=== PATIENT | male | born 1945 | race Caucasian/White ===

== ENCOUNTER → 2017-06-20 | Outpatient (CLI) | payer MEDICARE ==
[~2017-06-20] MED LIST: ALLOPURINOL300 MG PO; ASPIRIN325 M2 PO; CARAFATE1 GM/10 ML PO; DEXILANT60 MG PO; FLOMAX0.4 MG PO; FUROSEMIDE40 MG PO; GLIMEPIRIDE1 MG PO; HYDRALAZINE HCL25 MG PO; METFORMIN HCL500 MG PO; METOLAZONE5 M1 PO; MS CONTIN30 MG PO; OXYCONTIN40 M1 PO; POTASSIUM CHLO10 ME1 PO; PRAVASTATIN SOD10 MG PO; TOPROL XL50 MG PO; VASOTEC10 M1 PO; WARFARIN SODIUM10 MG PO; XARELTO20 MG; Z PHENOBARBITAL PO; Z.0.ACIPHEX20 MG PO; Z.0.AMARYL2 MG PO; Z.0.CRESTOR20 MG; Z.0.CYCLOBENZAPRINE1 PO; Z.0.DILANTIN100 MG PO; Z.0.FINASTERIDE5 MG PO; Z.0.GLUCOPHAGE1000 M PO; Z.0.JANUVIA100 MG PO; Z.0.LASIX40 MG PO; Z.0.LEXAPRO10 MG PO; Z.0.NEURONTIN300 MG PO; Z.0.PLAVIX75 MG PO; Z.0.VASOTEC10 MG PO; Z.0.VITAMIN D50000 U PO; Z.1.POTASSIUM CHLO10 PO; ZANTAC300 M1 PO; [UNRECOGNIZED DRUG - OTHER] PO
[2017-06-20 15:30] LABS: INR 2.05; PROTHROMBIN TIME 24.2 seconds (11.9-14.5)
[2017-06-20 15:33] LABS: BLOOD UREA NITROGEN 21 mg/dL (7-26); BUN/CREATININE RATIO 23 (6-25); EST GLOMERULAR FILTRATION RATE > 60 ML/MIN (60-)
--- NOTE | 2017-06-20 16:30 | Diagnostic Imaging Report ---
PROCEDURE: A single AP view of the chest. COMPARISON: None. INDICATIONS: picc line placement FINDINGS: Lines/tubes: New PICC line with tip in mid SVC. Lungs: The lungs are well inflated and clear. There is no evidence of pneumonia or pulmonary edema. Pleura: There is no pleural effusion or pneumothorax. Heart and mediastinum: The heart and the mediastinum are unremarkable. Bones: No acute bony abnormality. IMPRESSION: New left PICC line with tip at mid SVC. Dictated by: Lazarus Landrum M.D. on 06/20/2017 at 16:38 Electronically approved by: Lazarus Landrum M.D. on 06/20/2017 at 16:38
== END ==
LOC: DX 13:16
PROVIDERS: ATTEND Internal Medicine Infectious Disease
DX: L03.818 Cellulitis of other sites (principal)
CPT/HCPCS: 36415; 36569; 71010; 82565; 84520; 85610

== ENCOUNTER 2019-02-07 10:58 | Inpatient (IN) | payer MEDICARE ==
[~2019-02-07] VITALS: Ht 188 cm; Wt 144.2 kg
[2019-02-07] VITALS (30 sets, daily range): BP systolic 88–146; BP diastolic 53–100
--- OUTSIDE RECORDS SUMMARY | 2019-02-07 11:01 | XMS REPORT ---
Author Author [facility] Address Unknown Phone Unavailable Care Team Providers Care Behavioral Health Case Manager Name Role Phone ALESHIA GOMEZ Unavailable Unavailable Problems This patient has no known problems. Allergies, Adverse Reactions, Alerts This patient has no known allergies or adverse reactions. Medications This patient has no known medications. Results Test Description Test Time Test Comments Text Results Atomic Results Result Comments CHEST XRAY LINE PLACEMENT [place] [id number] Patient Name: CARMEN POLLARD MR #: [id number] : 1945 Age/Sex: 72/M Req #: [id number] Adm Physician: Ordered by: ALESHIA GOMEZ MD Report #: [id number] Location: DX Room/Bed: Procedure: [id number] DX/CHEST XRAY LINE PLACEMENT Exam Date: Exam Time: REPORT STATUS: Signed PROCEDURE: A single AP view of the chest. COMPARISON: None. INDICATIONS: picc line placement FINDINGS: Lines/tubes: New PICC line with tip in mid SVC. Lungs: The lungs are well inflated and clear. There is no evidence of pneumonia or pulmonary edema. Pleura: There is no pleural effusion or pneumothorax. Heart and mediastinum: The heart and the mediastinum are unremarkable. Bones: No acute bony abnormality. IMPRESSION: New left PICC line with tip at mid SVC. Dictated by: Soni Landrum M.D. on 06/20/2017 at 16:38 Electronically approved by: Soni Landrum M.D. on 06/20/2017 at 16:38 Dictated By: SONI LANDRUM MD [id number] Transcribed By: TATA on 06/20/17 1638 COPY TO: ALESHIA GOMEZ MD
--- NOTE | 2019-02-07 11:17 | NUR ---
20 MG OF ETOMIDATE GIVEN VIA 18G LEFT F/A.
--- NOTE | 2019-02-07 11:19 | NUR ---
INTUBATED AT THIS TIME WITH 8CM ET TUBE/25 AT THE LIP
[2019-02-07] MEDS ORDERED: FENTANYL CITRATE INJ 2,000 MCG in SODIUM CHLORIDE 0.9% 250ML 210 ML IV PRN (11:30)
[2019-02-07] MEDS ORDERED: SODIUM CHLORIDE 0.9% 1000ML 1,000 ML ONE ×2 (11:33→12:08)
[2019-02-07] MEDS: MIDAZOLAM HCL 25 MG in SODIUM CHLORIDE 0.9% 50ML 45 ML IV PRN ×3 (11:45→22:50)
--- NOTE | 2019-02-07 11:55 | NUR ---
16FR PORTILLO PLACED
--- NOTE | 2019-02-07 12:08 | Diagnostic Imaging Report ---
Chest, central frontal view Clinical indication: Altered mental status Comparison: No comparisons available for review. Findings/impression: The tip of the endotracheal tube is at the level of the clavicles approximately 5.6 cm above the [place]. The heart is mildly enlarged. There is diffuse interstitial prominence compatible with edema. More focal opacity is identified in the right upper lung zone for which pneumonitis should clinically excluded. There is a trace right pleural effusion. There is no pneumothorax. Right shoulder arthroplasty hardware is partially visualized. Signed by: Nate Obregon MD on 02/07/2019 12:05 PM
--- NOTE | 2019-02-07 12:23 | NUR ---
14FR Adam PLACED AND CONNCECTED TO L.I.SJosé
[2019-02-07 12:37] LABS: ABG HCO3 42 mmol/L (23-28); ABG PCO2 57 mmHg (41-51); ABG PH 7.47 (7.31-7.41); ABG PO2 78 mmHg (80-105)
--- NOTE | 2019-02-07 12:41 | NUR ---
X-RAY IN RM; POST O.G.T. PLACEMENT
[2019-02-07 12:44] LABS: BASOPHILS % 0.2 % (0.0-1.0); HEMATOCRIT 42.6 % (38.2-49.6); HEMOGLOBIN 11.9 g/dL (14.0-18.0); LYMPHOCYTES # (AUTO) 0.6 (1.0-3.2); LYMPHOCYTES % 6.1 % (18.0-39.1); MEAN CORPUSCULAR HEMOGLOBIN 26.6 pg (28-32); MEAN CORPUSCULAR HGB CONC 27.9 g/dL (31-35); MEAN CORPUSCULAR VOLUME 95.3 fL (81-99); MONOCYTES # (AUTO) 0.4 (0.2-0.8); MONOCYTES % 4.3 % (4.4-11.3); NEUTROPHILS # (AUTO) 8.1 (2.1-6.9); NEUTROPHILS % 88.9 % (38.7-80.0); PLATELET COUNT 160 x10e3/uL (140-360); RED BLOOD COUNT 4.47 x10e6/uL (4.3-5.7); RED CELL DISTRIBUTION WIDTH 15.5 % (11.7-14.4)
[2019-02-07 12:50] LABS: PROTHROMBIN TIME 54.1 seconds (11.9-14.5)
[2019-02-07 12:51] LABS: PARTIAL THROMBOPLASTIN TIME 69.6 seconds (23.8-35.5)
[2019-02-07] MEDS ORDERED: SUCCINYLCHOLINE CHLORIDE 20 MG/ML 10ML VIAL ONE (12:56)
[2019-02-07] MEDS ORDERED: ETOMIDATE 2 MG/ML 10 ML INJ IV ONE (12:56)
[2019-02-07] MEDS ORDERED: VANCOMYCIN 1GM/NS 250 ML 250 ML IV STA (13:00)
[2019-02-07] MEDS ORDERED: CEFEPIME HCL 1 GM VIAL IV SCH (13:00)
[2019-02-07 13:01] LABS: ALANINE AMINOTRANSFERASE 19 IU/L (0-55); ALBUMIN 3.8 g/dL (3.5-5.0); ALBUMIN/GLOBULIN RATIO 0.8 (0.8-2.0); ALKALINE PHOSPHATASE 164 IU/L (40-150); ANION GAP 14.3 mmol/L (8-16); BLOOD UREA NITROGEN 29 mg/dL (7-26); BUN/CREATININE RATIO 35 (6-25); CHLORIDE 89 mmol/L (98-107); CREATINE KINASE 30 IU/L (30-200); CREATININE, SERUM 0.84 mg/dL (0.72-1.25); EST GLOMERULAR FILTRATION RATE > 60 ML/MIN (60-); GLUCOSE 159 mg/dL (74-118); INR 5.96; POTASSIUM 4.3 mmol/L (3.5-5.1); SODIUM 144 mmol/L (136-145)
[2019-02-07 13:03] LABS: CARBON DIOXIDE 45 mmol/L (22-29)
--- NOTE | 2019-02-07 13:08 | Diagnostic Imaging Report ---
Portable chest, single view Clinical indications: Status post intubation Comparison: Earlier the same day at 11:35 AM Impression: The tip of the endotracheal tube is 5.5 cm above the [place]. There is been no other significant interval changes given the differences in imaging technique. There is redemonstration of diffuse interstitial edema. There is no pneumothorax. Note that the lung bases are not included on this examination. Signed by: Nate Obregon MD on 02/07/2019 1:05 PM
[2019-02-07 13:21] LABS: BILIRUBIN,URINE SMALL (NEGATIVE); CLARITY,URINE SL CLOUDY (CLEAR); COLOR,URINE YELLOW (YELLOW); KETONES,URINE NEGATIVE (NEGATIVE); LEUKOCYTE ESTERASE ,URINE NEGATIVE (NEGATIVE); NITRITE,URINE NEGATIVE (NEGATIVE); PROTEIN,URINE DIPSTICK 2+ (NEGATIVE); URINE UROBILINOGEN 0.2 mg/dL (0.2 - 1)
--- NOTE | 2019-02-07 13:25 | NUR ---
DR. CARROLL SPOKE WITH FAMILY
[2019-02-07 13:34] LABS: BACTERIA,URINE FEW /HPF; EPITHELIAL CELLS,URINE FEW /LPF
--- NOTE | 2019-02-07 14:15 | Diagnostic Imaging Report ---
History: Weakness, AMS Comparison studies: None Technique: Axial images were obtained from the skull base to the vertex. Coronal and sagittal reconstructions obtained from the axial data. Dose modulation, iterative reconstruction, and/or weight based adjustment of the mA/kV was utilized to reduce the radiation dose to as low as reasonably achievable. Findings: Scalp/skull: Left frontoparietal craniectomy changes. No fractures, blastic or lytic lesions. Extra-axial spaces: No masses. No fluid collections. Brain sulci: Appropriate for age. Ventricles: Normal in size and configuration. No hydrocephalus. Parenchyma: Surgical cavity underlying the craniotomy site at the left superior frontal gyrus posterior aspect with surrounding encephalomalacia. No other abnormal densities. No masses, hemorrhage, acute or chronic cortical vascular insults. Sellar/suprasellar region: No abnormalities Craniocervical junction: Patent foramen magnum. No Chiari one malformation. Atherosclerotic calcifications of the carotid siphons. Mild mucosal thickening of ethmoid sinuses. Partially visualized oral tubing. IMPRESSION: No acute abnormalities . Left frontoparietal craniectomy changes with surgical cavity at the left superior frontal gyrus. Signed by: DR Raul Aguirre M.D. on 02/07/2019 2:12 PM
[2019-02-07] MEDS ORDERED: LEVOTHYROXINE50 MCG PO (14:38)
[2019-02-07] MEDS ORDERED: LORAZEPAM0.5 MG PO (14:38)
--- NOTE | 2019-02-07 14:51 | NUR ---
LEFT MESSAGE WITH OFFICE REGARDING NEW CONSULT
[2019-02-07] MEDS ORDERED: SODIUM CHLORIDE 0.9% 100 ML ONE (15:07)
[2019-02-07] MEDS: ASPIRIN 81 MG CHEW TAB PO ONE ×2 (15:20→16:18)
[2019-02-07] MEDS: CEFEPIME 1GM/NS 0.9% 50 ML 50 ML IV SCH ×2 (15:20→22:00)
[2019-02-07] MEDS ORDERED: PANTOPRAZOLE 40 MG 10ML VIAL IV STA (16:51)
[2019-02-07] MEDS ORDERED: TAMSULOSIN HCL 0.4 MG CAP PO SCH (17:00)
[2019-02-07] MEDS ORDERED: FUROSEMIDE INJ 10 MG/ML 2 ML VIAL IV SCH (17:00)
[2019-02-07] MEDS ORDERED: ACETAZOLAMIDE SODIUM 500 MG/VIAL IV ONE (17:15)
[2019-02-07] MEDS ORDERED: PHYTONADIONE 10 MG/ML AMP SC ONE (17:15)
[2019-02-07] MEDS ORDERED: FUROSEMIDE INJ 10 MG/ML 4 ML VIAL ONE (17:18)
[2019-02-07] MEDS: FUROSEMIDE INJ 10 MG/ML 4 ML VIAL IV SCH (17:22)
[2019-02-07 17:38] LABS: ABG HCO3 43 mmol/L (23-28); ABG PCO2 46 mmHg (41-51); ABG PH 7.58 (7.31-7.41); ABG PO2 40 mmHg (80-105)
[2019-02-07 17:53] LABS: FREE THYROXINE INDEX 2.6425 (1.4-3.8); THYROID STIMULATING HORMONE 1.839 uIU/mL (0.350-4.940)
[2019-02-07] MEDS ORDERED: GABAPENTIN 300 MG CAP PO SCH (18:00)
[2019-02-07] MEDS: FINASTERIDE 5 MG TAB PO SCH (18:00)
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
[2019-02-07 18:42] LABS: CREATINE KINASE MB 4.6 ng/mL (0-5.0)
[2019-02-07 18:50] LABS: ABG PCO2 42 mmHg (41-51); ABG PH 7.59 (7.31-7.41); ABG PO2 53 mmHg (80-105)
[2019-02-07 18:51] LABS: ABG HCO3 40 mmol/L (23-28)
--- NOTE | 2019-02-07 19:18 | NUR ---
Read ABG results to Dr. Dong at 1915. Recheck ABG in AM. No other orders or vent settings changes received.
--- NOTE | 2019-02-07 20:28 | Consultation ---
DATE OF CONSULTATION: 02/07/2019 Pulmonary Consultation Patient of Dr. Obregon. HISTORY OF PRESENT ILLNESS: Unfortunate 74-year-old gentleman seen many years ago, diagnosed with sleep apnea. He has had progressive episodes of respiratory failure and pulmonary edema today and was intubated in the emergency room. He has been bedbound for the last 2 days. He is currently intubated. At best, he is wheelchair-bound. He has a history of obstructive sleep apnea and hypoventilation syndrome. He has had coronary artery disease with a stent placed in 2008. He has chronic atrial fibrillation, chronically anemic, diabetic, history of seizure disorder, and BPH. He had a traumatic brain injury and skull fracture requiring decompression and craniotomy, history of chronic inflammatory demyelinating polyneuropathy. He is on multiple medications. He also has history of knee replacement, shoulder replacement, radiofrequency ablation, and prostate laser surgery. FAMILY HISTORY: Strongly positive for cancer of the prostate. He has appendectomy in the past, herniorrhaphy in the past, elbow surgery, joint replacement, shoulder and knee. MEDICATIONS: Include warfarin, Flomax, clorazepate, OxyContin, finasteride, Bumex, allopurinol, metoprolol, Pravachol, Neurontin, and amiodarone. PHYSICAL EXAMINATION: GENERAL: Burly obese white male, intubated and sedated. VITAL SIGNS: Blood pressure 132/112 now, temperature 96, respirations 22, pulse 100 and irregular. LUNGS: Bilateral rales. HEART: Irregular rhythm. ABDOMEN: Obese. EXTREMITIES: No edema. Stasis changes. IMPRESSION: 1. Acute pulmonary edema. 2. Acute respiratory distress syndrome. PLAN: Plan is for cautious diuresis, ventilator support. Continue home medications as tolerated. He is currently on antibiotics. Possibility of aspiration. Defer prophylactic anticoagulation, as the patient is over anticoagulated on Coumadin at this time. Consider vitamin K, ProTime rises further. INR is currently 6. We will increase PEEP and FiO2 as tolerated. Thank you for this kind referral. MD ALEXANDRE Reddy/MODL /[id number]
[2019-02-07] MEDS ORDERED: ENOXAPARIN INJ 80 MG/0.8 ML SYR SC SCH (21:00)
[2019-02-07] MEDS ORDERED: METOPROLOL SUCCINATE 50 MG TAB XL PO SCH (21:00)
[2019-02-07] MEDS: METOPROLOL TARTRATE 50 MG TAB PO SCH (21:00)
[2019-02-07] MEDS: GABAPENTIN 300 MG CAP PO SCH (22:00)
[2019-02-07] MEDS: FENTANYL CITRATE INJ 2,000 MCG in SODIUM CHLORIDE 0.9% 250ML 210 ML IV PRN (22:50)
--- NOTE | 2019-02-07 23:23 | Diagnostic Imaging Report ---
EXAM: Abdomen Radiograph 1 View INDICATION: Enteric tube placement COMPARISON: Chest radiograph 02/07/2019 FINDINGS: No lines or tubes. Normal volume of stool in the colon. No dilated loops of small bowel. No abnormal abdominal calcifications.. No abnormal soft tissue masses. No pneumoperitoneum. Degenerative changes in the lumbar spine and pelvis. The included lower heart border is mildly enlarged. Suggestion of a left retrocardiac opacity with obscuration of the left hemidiaphragm. IMPRESSION: An enteric tube is not identified. Mild cardiomegaly. Left retrocardiac opacity may represent edema, pneumonia, and/or atelectasis. Signed by: Benjamin Goldberg DO on 02/07/2019 11:20 PM
[2019-02-08] VITALS (25 sets, daily range): BP systolic 82–150; BP diastolic 41–130
[2019-02-08] MEDS ORDERED: AMIODARONE HCL 150MG 100 ML IV STA (00:24)
[2019-02-08 01:00] LABS: CREATINE KINASE MB 2.6 ng/mL (0-5.0)
[2019-02-08] MEDS: FENTANYL CITRATE INJ 2,000 MCG in SODIUM CHLORIDE 0.9% 250ML 210 ML IV PRN (01:08)
[2019-02-08] MEDS: MIDAZOLAM HCL 25 MG in SODIUM CHLORIDE 0.9% 50ML 45 ML IV PRN (01:35)
[2019-02-08] MEDS: VANCOMYCIN 1GM/NS 250 ML 250 ML IV SCH ×2 (02:55→14:10)
--- NOTE | 2019-02-08 05:54 | Diagnostic Imaging Report ---
EXAMINATION: CHEST SINGLE (PORTABLE) INDICATION: Right upper lobe pneumonia, CHF COMPARISON: Chest radiograph 02/07/2019 FINDINGS: AP view TUBES and LINES: ET tube tip terminates in the mid intrathoracic trachea. Enteric tube courses into abdomen with tip at a field of view.. LUNGS: Slight improvement in airspace opacities in bilateral mid to lower lungs. Prominent central pulmonary vasculature. PLEURA: Suspect small layering bilateral pleural effusions. No pneumothorax. HEART AND MEDIASTINUM: Cardiac size is mildly enlarged. BONES AND SOFT TISSUES: No acute osseous lesion. Soft tissues are unremarkable. Partially visualized left shoulder hardware intact. UPPER ABDOMEN: No free air under the diaphragm. IMPRESSION: Slight improvement in lung aeration compared to day prior. Persistent hazy opacification in the bilateral mid to lower lungs, favor edema rather than pneumonia. Suspect small layering bilateral pleural effusions. Signed by: Benjamin Goldberg DO on 02/08/2019 5:51 AM
[2019-02-08 06:00] LABS: BASOPHILS % 0.3 % (0.0-1.0); EOSINOPHILS % 0.1 % (0.0-6.0); HEMATOCRIT 30.2 % (38.2-49.6); HEMOGLOBIN 9.2 g/dL (14.0-18.0); LYMPHOCYTES # (AUTO) 1.2 (1.0-3.2); LYMPHOCYTES % 17.7 % (18.0-39.1); MEAN CORPUSCULAR HEMOGLOBIN 27.4 pg (28-32); MEAN CORPUSCULAR HGB CONC 30.5 g/dL (31-35); MEAN CORPUSCULAR VOLUME 89.9 fL (81-99); MONOCYTES # (AUTO) 0.6 (0.2-0.8); MONOCYTES % 8.5 % (4.4-11.3); PLATELET COUNT 114 x10e3/uL (140-360); RED BLOOD COUNT 3.36 x10e6/uL (4.3-5.7); RED CELL DISTRIBUTION WIDTH 15.5 % (11.7-14.4)
[2019-02-08] MEDS: FUROSEMIDE INJ 10 MG/ML 4 ML VIAL IV SCH ×2 (06:00→17:45)
[2019-02-08 06:22] LABS: ALANINE AMINOTRANSFERASE 15 IU/L (0-55); ALBUMIN 2.6 g/dL (3.5-5.0); ALBUMIN/GLOBULIN RATIO 0.9 (0.8-2.0); ALKALINE PHOSPHATASE 117 IU/L (40-150); ANION GAP 15.8 mmol/L (8-16); BLOOD UREA NITROGEN 32 mg/dL (7-26); BUN/CREATININE RATIO 34 (6-25); CALCIUM 8.5 mg/dL (8.4-10.2); CARBON DIOXIDE 36 mmol/L (22-29); CHLORIDE 99 mmol/L (98-107); CREATININE, SERUM 0.94 mg/dL (0.72-1.25); EST GLOMERULAR FILTRATION RATE > 60 ML/MIN (60-); GLUCOSE 89 mg/dL (74-118); POTASSIUM 3.8 mmol/L (3.5-5.1); SODIUM 147 mmol/L (136-145)
[2019-02-08 06:25] LABS: MAGNESIUM < 0.6 MG/DL (1.3-2.1)
[2019-02-08 06:31] LABS: PHOSPHORUS 0.9 MG/DL (2.3-4.7)
[2019-02-08] MEDS: GABAPENTIN 300 MG CAP PO SCH ×3 (06:39→21:28)
[2019-02-08] MEDS: LEVOTHYROXINE SODIUM 50 MCG TAB PO SCH (06:39)
--- NOTE | 2019-02-08 06:39 | NUR ---
Left voicemail with Dr. Valdivia regarding new consult and hypotension. Awaiting return call. Attempted to call Dr. Obregon's answering service x3. Received busy signal 3 calls. Left message with answering service at 0640 regarding critical lab value. Awaiting return call.
[2019-02-08] MEDS ORDERED: MAGNESIUM SULFATE 2GM/50ML 50 ML IV ONE (08:15)
[2019-02-08] MEDS: METOPROLOL TARTRATE 50 MG TAB PO SCH ×3 (08:50→20:48)
[2019-02-08] MEDS: PANTOPRAZOLE 40 MG 10ML VIAL IV SCH (08:54)
[2019-02-08] MEDS: ALLOPURINOL 300 MG TAB PO SCH (09:22)
[2019-02-08] MEDS: FINASTERIDE 5 MG TAB PO SCH ×2 (09:22→16:13)
[2019-02-08] MEDS: CEFEPIME 1GM/NS 0.9% 50 ML 50 ML IV SCH ×2 (09:23→20:48)
[2019-02-08 09:57] LABS: ABG HCO3 40 mmol/L (23-28); ABG PCO2 41 mmHg (41-51); ABG PO2 202 mmHg (80-105)
[2019-02-08] MEDS ORDERED: LORAZEPAM 1 MG TAB NG PRN (10:00)
[2019-02-08] MEDS ORDERED: SODIUM CHLORIDE 0.9% 250ML 250 ML IV NR (10:00)
[2019-02-08] MEDS ORDERED: LORAZEPAM INJ 2 MG/ML VIAL IV PRN (10:00)
[2019-02-08] MEDS ORDERED: SODIUM CHLORIDE 0.9% 250ML 250 ML ONE (10:14)
[2019-02-08] MEDS ORDERED: POTASSIUM PHOSPHATE 20 MM in SODIUM CHLORIDE 0.9% 250ML 250 ML IV SCH (10:15)
[2019-02-08] MEDS ORDERED: POTASSIUM PHOSPHATE IV ONE (10:30)
[2019-02-08] MEDS ORDERED: SODIUM CHLORIDE IV ONE (10:30)
[2019-02-08 10:32] LABS: INR 2.73; PROTHROMBIN TIME 29.7 seconds (11.9-14.5)
[2019-02-08] MEDS ORDERED: POTASSIUM PHOSPHATE 20 MM in SODIUM CHLORIDE 0.9% 250ML 250 ML IV ONE (10:45)
--- NOTE | 2019-02-08 11:41 | NUR ---
SPOKE WITH DR. DYSNO REGARDING NEW CONSULT
--- NOTE | 2019-02-08 12:37 | NUR ---
Nutrition Intervention Note RD Recommendation(s) for Physician: Increase Glucerna 1.5 to a goal of 65ml/hr via OGT(1184ml of free water,2340 kcals and 128.7g of protein) 250ml water flush every four hours Plan of Care: RD following, monitoring for tolerance and adequacy Nutrition reason for involvement: New EN RD Assessment Initial encounter with patient. Pt with a poor prognosis and palliative care has been discussed with family. Pt is orally intubated and sedated. was present at the bedside. New EN order noted and not infusing at time of visit. Glucerna 1.5 at 40ml/hr would provide 728.64ml of free H2O not including water flushes, 1440 kcals, and 79.2g of protein. Pt is DNR. Diet Hx: Pt has no known food allergies. No nausea, vomiting or diarrhea. Some voluntary wt loss DIALYSIS REGISTERED NURSE Principal Problems/Diagnoses: Acute respiratory failure, pneumonia PMH: Gout, CAD, CKD stage 1, T2DM, atrial fibrillation, hypothyroid, systolic heart failure, seizure DO overweight/obesity, respiratory failure, TBI GI: obese, no Nausea, vomiting or constipation Skin: Intact Skin Labs: (02/08/2019) Biochemical data reviewed. Na of 147 Meds: (02/08/19) MAR reviewed Ht: 74in. Wt:347lbs BMI:44.6kg/M2 IBW:190lbs Malnutrition Evaluation (02/08/19) The patient does not meet criteria for a specified degree of malnutrition at this time. Will re-evaluate at follow-up as appropriate. Nutrition Prescription (Diet Order): NPO Estimated Nutritional Needs: 2208-2523calories/day (14-16 kcal/kg/BW) 157g protein/day ( 1g pro/kg/ BW) Diet Adequacy: Not meeting calorie needs, Not meeting protein needs Diet Education Needs Assessment: Diet education not indicated Nutrition Care Level: Low, Moderate, High Nutrition Diagnosis: Swalloing difficulty related to acute illness as evidenced by need to remain NPO. Goal: Patient will meet 75-100% of estimated needs by follow up Progress: (Progressing) Interventions: Commercial food, Composition, Rate, Route, IVF, Prescription medications Monitoring/Evaluation: Total energy intake, Total protein intake, Formula/Solution, IVF, Prescription medication, Weight change Signed: Aram Fernandes RD, LD, CNSC Addendum: 02/08/19 at 1332 by Aram Fernandes DIET Nutrition Care Level: Moderate
--- NOTE | 2019-02-08 14:00 | NUR ---
OG tube draining dark bilious output. Location of tube assessed by auscultate, air heard passing through bowels. Glucerna 1.5 started at 10cc an hour.
[2019-02-08 15:43] LABS: ABG HCO3 38 mmol/L (23-28); ABG PCO2 49 mmHg (41-51); ABG PO2 79 mmHg (80-105)
[2019-02-08] MEDS: TAMSULOSIN HCL 0.4 MG CAP PO SCH (15:59)
--- NOTE | 2019-02-08 17:12 | Consultation ---
DATE OF CONSULTATION: Cardiology Consultation REASON FOR CONSULTATION: Atrial flutter. CONSULTING PHYSICIAN: John Obregon MD. HISTORY OF PRESENT ILLNESS: Mr. Diaz is a 74-year-old male, who had been hospitalized multiple times, where it is documented that he was brought in due to worsening confusion and agitation. He lives at home with his family. He is currently intubated and also sedated. He is now able to provide most of his medical history, however, he has an extensive tachypnea . REVIEW OF SYSTEMS: Unable to obtain. PAST MEDICAL HISTORY: Includes grand mal seizures, COPD, Botello esophagus, coronary artery disease with angioplasty to the left anterior descending artery and drug-eluting stent placed in 2008, severe sleep apnea, atrial fibrillation since 2012 with a recent ablation done in 2015. Congestive heart failure. Kidney disease. PAST SURGICAL HISTORY: Includes tonsillectomy, appendectomy. Left inguinal hernia removed, left shoulder open repair, later on rotator cuff, right shoulder scope and removal of and debris, total knee replacement, decompression of the lumbar spine L4 and S2 in 2001, left knee replacement. SOCIAL HISTORY: , lives at home with and has a son. FAMILY HISTORY: Unable to obtain. PHYSICAL EXAMINATION: VITAL SIGNS: Temperature 99.5, pulse 93, respiratory rate 21, blood pressure 82/52, and oxygen saturation 100% on mechanical ventilator. GENERAL: Sedated and intubated. Chronically ill-appearing male. NECK: Supple. No JVD noted. CARDIOVASCULAR: Irregular rate and rhythm. Systolic murmur present. LUNGS: Diminished breath sounds anterior lower lobes. ABDOMEN: Soft, nontender. Hypoactive bowel sounds. EXTREMITIES: Lower extremity, bilateral lower extremity discoloration. 2+ pedal pulses. CARDIOVASCULAR MEDICATIONS: 1. Lasix 60 mg IV b.i.d. 2. Metoprolol 100 mg p.o. t.i.d. 3. Fentanyl IV drip. 4. Versed IV drip. 5. Levothyroxine 50 mcg p.o. daily. 6. Gabapentin 600 p.o. q.8 hours. LABORATORY DATA: WBC 6.93, hemoglobin 9.2, hematocrit 30.2, platelets 114. Sodium 144, potassium 3.8, BUN 32, creatinine 0.94, glucose 89. Magnesium 0.6. Creatine kinase 33, CK-MB 2.60, troponin 0.179. Chest x-ray, there is slightly improvement in the lung aeration compared to yesterday. Persistent hazy opacification in the lateral mid and lower lung. Abdominal x-ray with enteric tube is not identified. Mild cardiomegaly. TELEMETRY: Atrial flutter at the moment with RVR. IMPRESSION: 1. Respiratory failure, likely secondary to pulmonary edema and pneumonia. 2. Txpnz-tg-rjpprip congestive heart failure. 3. Pneumonia. 4. Severe sleep apnea. 5. Obesity. 6. Permanent atrial flutter, was anticoagulated with warfarin currently off. RECOMMENDATIONS: 1. Repeat an echocardiogram. 2. Maintain on telemetry. 3. Given hypertension, decrease the dose of beta-vel for now. 4. Wean off sedation as tolerated. 5. Continue to monitor the patient's mental status. 6. Antimicrobial therapy per Infectious Disease. 7. We will continue to follow this patient very closely. Thank you for this consultation and allowing us to participate in this patient's care. Dictated by Victorina Loja NP Jaren Valdivia MD JWV/MODL /[id number]
[2019-02-08] MEDS ORDERED: DIGOXIN INJ 0.25 MG/ML 2 ML AMP IV NR (18:30)
--- NOTE | 2019-02-08 19:18 | NUR ---
0800- Dr. Valdivia's paged due to patients mag 0.6 this morning and patients hypotension. Orders given to replace magnesium and order echo. EN[facility]MENT[facility] HE[employer] AND SAFETY INTERN with Dr. Valdivia's office notified of this during her rounds. 0845- Patient progressively becoming more hypotensive, blood pressures now in 80's systolic. Sedation held. Dr. Romero aware upon rounding. Vent settings changed to O2 70%, Respirations 14, Peep 8, TV [address] Romero. Currently patient's wishes patient to be DNAR (no shocking, no compressions). 250 ml NS bolus ordered. Dr. Romero ordered a PICC line to increase iv access, at this time patient's does not want patient to have a line placed or have blood pressure supported other than IV fluids. Dr. Romero aware and order for PICC d/c. Will continue to monitor. Pt's requested different cardiology MD to be consulted. Dr. Boyce notified of new consult. Barrel Dedenting Machine Operator notified of patients afib rhythm and HR up to 140's. ABG drawn and Dr. Reyes notified of results. MD also notified that patients INR results. No new orders. Patient's stated she did not quite understand what was happening with patients blood pressure needing support and stated she would be ok with a PICC line placement if needed. Patient's stated she wants to have patient resume FULL CODE status at this time. Attending MD paged to be notified of 's wishes. Page went unreturned.
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
[2019-02-08] MEDS ORDERED: DILTIAZEM HCL 30 MG TAB PO SCH (21:00)
[2019-02-08 23:12] LABS: ABG HCO3 35 mmol/L (23-28); ABG PCO2 48 mmHg (41-51); ABG PH 7.46 (7.31-7.41); ABG PO2 57 mmHg (80-105)
[2019-02-09] VITALS (48 sets, daily range): BP systolic 83–140; BP diastolic 41–111
[2019-02-09] MEDS: DILTIAZEM HCL 30 MG TAB PO SCH ×5 (00:43→23:38)
[2019-02-09] MEDS: VANCOMYCIN 1GM/NS 250 ML 250 ML IV SCH ×2 (02:55→15:10)
[2019-02-09] MEDS: MIDAZOLAM HCL 25 MG in SODIUM CHLORIDE 0.9% 50ML 45 ML IV PRN ×3 (02:56)
[2019-02-09 05:15] LABS: BASOPHILS % 0.2 % (0.0-1.0); EOSINOPHILS # (AUTO) 0.2 (0.0-0.4); EOSINOPHILS % 1.2 % (0.0-6.0); HEMATOCRIT 39.5 % (38.2-49.6); HEMOGLOBIN 10.9 g/dL (14.0-18.0); LYMPHOCYTES # (AUTO) 0.7 (1.0-3.2); LYMPHOCYTES % 4.9 % (18.0-39.1); MEAN CORPUSCULAR HEMOGLOBIN 26.5 pg (28-32); MEAN CORPUSCULAR HGB CONC 27.6 g/dL (31-35); MEAN CORPUSCULAR VOLUME 95.9 fL (81-99); MONOCYTES # (AUTO) 0.7 (0.2-0.8); MONOCYTES % 5.6 % (4.4-11.3); NEUTROPHILS # (AUTO) 11.6 (2.1-6.9); NEUTROPHILS % 87.4 % (38.7-80.0); PLATELET COUNT 131 x10e3/uL (140-360); RED BLOOD COUNT 4.12 x10e6/uL (4.3-5.7); RED CELL DISTRIBUTION WIDTH 16.1 % (11.7-14.4)
[2019-02-09] MEDS: FUROSEMIDE INJ 10 MG/ML 4 ML VIAL IV SCH (05:46)
[2019-02-09] MEDS: GABAPENTIN 300 MG CAP PO SCH (05:47)
[2019-02-09] MEDS: LEVOTHYROXINE SODIUM 50 MCG TAB PO SCH (05:47)
[2019-02-09 05:48] LABS: ANION GAP 17.3 mmol/L (8-16); BLOOD UREA NITROGEN 28 mg/dL (7-26); BUN/CREATININE RATIO 27 (6-25); CALCIUM 8.9 mg/dL (8.4-10.2); CARBON DIOXIDE 33 mmol/L (22-29); CHLORIDE 99 mmol/L (98-107); CREATININE, SERUM 1.04 mg/dL (0.72-1.25); EST GLOMERULAR FILTRATION RATE > 60 ML/MIN (60-); GLUCOSE 129 mg/dL (74-118); POTASSIUM 3.3 mmol/L (3.5-5.1); SODIUM 146 mmol/L (136-145)
--- NOTE | 2019-02-09 07:01 | Diagnostic Imaging Report ---
EXAMINATION: CHEST SINGLE (PORTABLE) INDICATION: Intubated COMPARISON: Chest radiograph 02/08/2019 FINDINGS: AP view TUBES and LINES: ET tube tip terminates in the upper intrathoracic trachea. The enteric tube courses into the abdomen with tip out of field of view.. LUNGS: Persistent bilateral hazy airspace opacities, similar compared to day prior.. PLEURA: Suspect small bilateral pleural effusions. No pneumothorax. HEART AND MEDIASTINUM: Cardiac size is mildly enlarged. BONES AND SOFT TISSUES: Unchanged UPPER ABDOMEN: No free air under the diaphragm. IMPRESSION: Persistent bilateral airspace disease, edema is favored. Suspect small bilateral pleural effusions. Similar exam compared to day prior. Signed by: Benjamin Goldberg DO on 02/09/2019 6:58 AM
[2019-02-09] MEDS ORDERED: ACETAMINOPHEN 325 MG TAB ONE (08:05)
[2019-02-09] MEDS: FINASTERIDE 5 MG TAB PO SCH ×2 (08:29→16:03)
[2019-02-09] MEDS: PHOSPHORUS 250 MG TAB PO SCH (08:29)
[2019-02-09] MEDS: PANTOPRAZOLE 40 MG 10ML VIAL IV SCH (08:29)
[2019-02-09] MEDS: CEFEPIME 1GM/NS 0.9% 50 ML 50 ML IV SCH (08:29)
[2019-02-09] MEDS: ACETAMINOPHEN 325 MG TAB PO PRN ×2 (08:30→14:44)
[2019-02-09] MEDS: ALLOPURINOL 300 MG TAB PO SCH (08:32)
[2019-02-09] MEDS: METOPROLOL TARTRATE 50 MG TAB PO SCH ×3 (09:00→21:10)
[2019-02-09] MEDS ORDERED: SODIUM CHLORIDE 0.9% 250ML 250 ML IV ONE (10:00)
[2019-02-09] MEDS ORDERED: SODIUM CHLORIDE 0.9% 500ML 500 ML ONE ×2 (10:44→11:16)
[2019-02-09] MEDS ORDERED: SODIUM CHLORIDE 0.9% 500ML 500 ML IV ONE ×2 (11:00→15:15)
[2019-02-09] MEDS ORDERED: VASOPRESSIN 100 UNIT in DEXTROSE 5% 100ML 100 ML IV PRN (11:00)
[2019-02-09 11:46] LABS: ABG HCO3 35 mmol/L (23-28); ABG PCO2 41 mmHg (41-51); ABG PH 7.55 (7.31-7.41); ABG PO2 127 mmHg (80-105)
[2019-02-09 12:32] LABS: INR 1.53
[2019-02-09] MEDS ORDERED: HEPARIN SOD (PORCINE) 5,000 UNIT/ML VIAL IV NR (13:00)
[2019-02-09] MEDS ORDERED: HEPARIN 25,000 UNIT 1,000 UNIT in DEXTROSE 5% 250ML 250 ML IV SCH (13:00)
[2019-02-09] MEDS ORDERED: HEPARIN 25,000 UNIT DRIP IV ONE (13:24)
[2019-02-09] MEDS ORDERED: NOREPINEPHRINE 8 MG/D5W 250 ML 250 ML ONE (13:25)
--- NOTE | 2019-02-09 13:28 | Diagnostic Imaging Report ---
Date and Time: 02/09/2019 Procedure: Ultrasound-guided central venous catheter placement, right internal jugular cinder crusher operator: Dr. Lopez Pre-operative diagnosis: Hypotension, need for central venous access Post-operative diagnosis: Hypotension, need for central venous access Conscious Sedation: Versed GTT per ICU team. The patient's heart rate and pulse oximetry were continuously monitored by the interventional radiology nurse. Blood pressure was monitored at 5 minute intervals. Additional Medications: Lidocaine 1% for local anesthesia Estimated blood loss: Minimal Blood products administered: None Specimens: None Implants: 7 [place], 16 cm triple-lumen central venous catheter Condition at completion: Critical Disposition: Remain in ICU DISCUSSION: Informed consent was obtained and documented in the medical record after discussion of risks and benefits. The patient was placed in the supine position on the hospital bed. Preliminary sonographic evaluation confirmed patency of the right internal jugular vein, evidenced by compressibility. The right neck was prepped and draped in the standard sterile fashion. 1% lidocaine was infiltrated into the skin and subcutaneous tissues for local anesthesia. Then under continuous sonographic guidance, an 18-gauge singlewall needle was used to access the right internal jugular vein. A permanent sonographic image was stored in the medical record. A 0.0 3 5-in. wire was advanced centrally with continuous cardiac rhythm monitoring. The needle was removed over the wire and the tract was dilated. Then a 7 [place], 16 cm triple-lumen central venous catheter was advanced over the wire to full depth. The wire was removed. Each lumen showed adequate bidirectional flow and was flushed with sterile saline. The catheter was secured to the skin with monofilament nylon suture and a sterile dressing was applied. The patient tolerated the procedure well without immediate complication. FINDINGS: Patent right internal jugular vein. IMPRESSION: Successful placement of a 7 [place], 16 cm triple-lumen central venous catheter by a right internal jugular approach under sonographic guidance. Chest radiograph will be obtained to confirm line positioning prior to use. Signed by: Dr. Óscar Lopez M.D. on 02/09/2019 1:25 PM
--- NOTE | 2019-02-09 13:29 | Diagnostic Imaging Report ---
Date and Time: 02/09/2019 Procedure: Ultrasound-guided central venous catheter placement, right internal jugular kick press operator: Dr. Lopez Pre-operative diagnosis: Hypotension, need for central venous access Post-operative diagnosis: Hypotension, need for central venous access Conscious Sedation: Versed GTT per ICU team. The patient's heart rate and pulse oximetry were continuously monitored by the interventional radiology nurse. Blood pressure was monitored at 5 minute intervals. Additional Medications: Lidocaine 1% for local anesthesia Estimated blood loss: Minimal Blood products administered: None Specimens: None Implants: 7 [place], 16 cm triple-lumen central venous catheter Condition at completion: Critical Disposition: Remain in ICU DISCUSSION: Informed consent was obtained and documented in the medical record after discussion of risks and benefits. The patient was placed in the supine position on the hospital bed. Preliminary sonographic evaluation confirmed patency of the right internal jugular vein, evidenced by compressibility. The right neck was prepped and draped in the standard sterile fashion. 1% lidocaine was infiltrated into the skin and subcutaneous tissues for local anesthesia. Then under continuous sonographic guidance, an 18-gauge singlewall needle was used to access the right internal jugular vein. A permanent sonographic image was stored in the medical record. A 0.0 3 5-in. wire was advanced centrally with continuous cardiac rhythm monitoring. The needle was removed over the wire and the tract was dilated. Then a 7 [place], 16 cm triple-lumen central venous catheter was advanced over the wire to full depth. The wire was removed. Each lumen showed adequate bidirectional flow and was flushed with sterile saline. The catheter was secured to the skin with monofilament nylon suture and a sterile dressing was applied. The patient tolerated the procedure well without immediate complication. FINDINGS: Patent right internal jugular vein. IMPRESSION: Successful placement of a 7 [place], 16 cm triple-lumen central venous catheter by a right internal jugular approach under sonographic guidance. Chest radiograph will be obtained to confirm line positioning prior to use. Signed by: Dr. Óscar Lopez M.D. on 02/09/2019 1:25 PM
[2019-02-09] MEDS ORDERED: POTASSIUM CHLORIDE 20MEQ/100ML 200 ML IV ONE (13:45)
--- NOTE | 2019-02-09 13:45 | Diagnostic Imaging Report ---
Examination: Single AP view of the chest. COMPARISON: AP chest same date INDICATION: Central line placement IMPRESSION: 1. Lines and Tubes: Interval placement of right-sided central line, with distal tip projecting in the region of the mid to distal SVC. 2. Otherwise no interval change. Signed by: Dr. Barrington Martinez M.D. on 02/09/2019 1:42 PM
[2019-02-09] MEDS ORDERED: HEPARIN SOD (PORCINE) 5,000 UNIT/ML VIAL ONE (13:51)
[2019-02-09] MEDS: NOREPINEPHRINE INJ 4MG/4ML 8 MG in DEXTROSE 5% 250ML 250 ML IV SCH (14:00)
[2019-02-09] MEDS: MEROPENEM 500MG/ NS 50ML 50 ML IV SCH ×2 (14:25→21:46)
[2019-02-09] MEDS: TAMSULOSIN HCL 0.4 MG CAP PO SCH (16:03)
--- NOTE | 2019-02-09 16:18 | NUR ---
0800- Dr. Reyes notified that patient running temp of 103.5 Axillary. Orders for Tylenol given. Patient placed on cooling blanket. 1000- Patient's blood pressures reading in systolic 70's-80's. Message left for Dr. Boyce informing of situation. 1100- Dr. Reyes rounded orders given for 500cc NS bolus and start vasopressin while awaiting central line placement. Once CVC done give second 500cc NS bolus and switch from Vasopressin to Levophed. Consent for central line signed by patients Anat Diaz. Blood cultures ordered, lactic acid and urine cultures ordered. 1213- Dr. Amos's office called for infectious disease consult ordered by Dr. Vinayak Pastrana. 1243- Dr. Reyes notified of patients INR. Orders given for heparin drip. 1320- Central line placed in RIJ by interventional radiology. Chest x ray done to verify placement. 1330- Per Dr. Lopez central line ok to use.
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
[2019-02-10] VITALS (26 sets, daily range): BP systolic 87–139; BP diastolic 47–110
[2019-02-10] MEDS: ACETAMINOPHEN 325 MG TAB PO PRN ×2 (03:29→10:52)
[2019-02-10] MEDS: VANCOMYCIN 1GM/NS 250 ML 250 ML IV SCH ×2 (03:29→16:20)
[2019-02-10 05:21] LABS: BASOPHILS % 0.1 % (0.0-1.0); EOSINOPHILS % 0.3 % (0.0-6.0); HEMATOCRIT 31.1 % (38.2-49.6); HEMOGLOBIN 9.4 g/dL (14.0-18.0); LYMPHOCYTES # (AUTO) 0.8 (1.0-3.2); LYMPHOCYTES % 7.4 % (18.0-39.1); MEAN CORPUSCULAR HGB CONC 30.2 g/dL (31-35); MEAN CORPUSCULAR VOLUME 89.4 fL (81-99); MONOCYTES # (AUTO) 0.5 (0.2-0.8); MONOCYTES % 4.5 % (4.4-11.3); NEUTROPHILS # (AUTO) 9.6 (2.1-6.9); NEUTROPHILS % 87.2 % (38.7-80.0); PLATELET COUNT 153 x10e3/uL (140-360); RED BLOOD COUNT 3.48 x10e6/uL (4.3-5.7); RED CELL DISTRIBUTION WIDTH 16.2 % (11.7-14.4)
[2019-02-10 05:34] LABS: INR 1.58; PROTHROMBIN TIME 19.5 seconds (11.9-14.5)
[2019-02-10 05:35] LABS: PARTIAL THROMBOPLASTIN TIME 48.9 seconds (23.8-35.5)
[2019-02-10 05:45] LABS: ALANINE AMINOTRANSFERASE 12 IU/L (0-55); ALBUMIN 2.4 g/dL (3.5-5.0); ALBUMIN/GLOBULIN RATIO 0.7 (0.8-2.0); ALKALINE PHOSPHATASE 109 IU/L (40-150); ANION GAP 12.8 mmol/L (8-16); BLOOD UREA NITROGEN 28 mg/dL (7-26); BUN/CREATININE RATIO 34 (6-25); CALCIUM 8.6 mg/dL (8.4-10.2); CARBON DIOXIDE 35 mmol/L (22-29); CHLORIDE 97 mmol/L (98-107); CREATININE, SERUM 0.83 mg/dL (0.72-1.25); EST GLOMERULAR FILTRATION RATE > 60 ML/MIN (60-); GLUCOSE 135 mg/dL (74-118); SODIUM 142 mmol/L (136-145)
[2019-02-10 05:46] LABS: POTASSIUM 2.8 mmol/L (3.5-5.1)
[2019-02-10] MEDS: MEROPENEM 500MG/ NS 50ML 50 ML IV SCH ×3 (05:46→22:32)
[2019-02-10] MEDS: LEVOTHYROXINE SODIUM 50 MCG TAB PO SCH (05:46)
[2019-02-10] MEDS: DILTIAZEM HCL 30 MG TAB PO SCH ×3 (05:46→18:11)
[2019-02-10] MEDS ORDERED: POTASSIUM CHLORIDE 20MEQ/15ML UDC NG ONE ×2 (06:30→10:30)
[2019-02-10] MEDS: MIDAZOLAM HCL 25 MG in SODIUM CHLORIDE 0.9% 50ML 45 ML IV PRN (07:30)
--- NOTE | 2019-02-10 08:13 | Diagnostic Imaging Report ---
Exam: Chest one view Comparison: February 09, 2019 Clinical history: CHF, pneumonia Findings: The tubes and lines are unchanged in position. There is persistent cardiomegaly with bilateral patchy airway opacities, right greater than left may represent pulmonary edema with superimposed pneumonitis. The right and left hemidiaphragms were not well visualized which may represent atelectasis or consolidation with underlying pleural effusion. There is no evidence of pneumothorax. The regional osseous structures are unchanged. Signed by: Dr. Freddie Alvarado MD on 02/10/2019 8:09 AM
[2019-02-10] MEDS ORDERED: POTASSIUM CHLORIDE 20MEQ/100ML 200 ML IV ONE (08:30)
[2019-02-10] MEDS: PANTOPRAZOLE 40 MG 10ML VIAL IV SCH (09:04)
[2019-02-10] MEDS: PHOSPHORUS 250 MG TAB PO SCH (09:04)
[2019-02-10] MEDS: ALLOPURINOL 300 MG TAB PO SCH (09:05)
[2019-02-10] MEDS: ENOXAPARIN SODIUM INJ 100 MG/ML SYR SC SCH ×2 (09:05→22:32)
[2019-02-10] MEDS: FINASTERIDE 5 MG TAB PO SCH ×2 (09:05→16:20)
[2019-02-10] MEDS: METOPROLOL TARTRATE 50 MG TAB PO SCH ×3 (09:05→22:32)
[2019-02-10 09:22] LABS: ABG HCO3 33 mmol/L (23-28); ABG PCO2 37 mmHg (41-51); ABG PH 7.56 (7.31-7.41); ABG PO2 88 mmHg (80-105)
[2019-02-10] MEDS ORDERED: SODIUM CHLORIDE 0.9% 1000ML 1,000 ML ONE (09:29)
[2019-02-10] MEDS ORDERED: SODIUM CHLORIDE 0.9% 500ML 500 ML IV ONE (09:30)
[2019-02-10] MEDS ORDERED: DIGOXIN INJ 0.25 MG/ML 2 ML AMP IV SCH ×2 (10:00)
--- NOTE | 2019-02-10 10:00 | NUR ---
AL, DR.SHEBIBS PATEL NOTIFIED OF POSITIVE SEPSIS SCREEN. NO FURTHER ORDERS RECEIVED.
--- NOTE | 2019-02-10 10:28 | NUR ---
VERIFIED WITH PATIENT CARDIAC MEDICATIONS AT THIS TIME, WILL CONTINUE TO MONITOR CLOSELY
[2019-02-10] MEDS ORDERED: SODIUM CHLORIDE 0.9% 1000ML 1,000 ML IV SCH (10:30)
[2019-02-10] MEDS: FENTANYL CITRATE INJ 2,000 MCG in SODIUM CHLORIDE 0.9% 250ML 210 ML IV PRN (10:40)
--- NOTE | 2019-02-10 11:25 | NUR ---
LEVOPHED OFF AT THIS TIME WILL CONTINUE TO MONITOR CLOSELY
--- NOTE | 2019-02-10 12:24 | NUR ---
Nutrition Intervention Note RD Recommendation(s) for Physician (02/10): TF recommendation: Trickle feeds of Vital HP if pt is hemodynamically stable and medically feasible, advance slowly and as tolerated to goal rate of 65 ml/hr when pt is no longer on pressors with 30 ml water flushed every 4 hours (1560 kcal, 136 gram protein, 1304 ml of fluid). -IVF management and additional flushes per MD. -Blood glucose monitoring and insulin management per MD. Plan of Care: RD following, monitoring for tolerance and adequacy Nutrition reason for involvement: Follow up RD Assessment 02/10: Follow up: Pt is intubated and sedated on fentanyl and versed, no propofol. Pt is on pressor support, pt is receiving norepinephrine at 3 mcg/min, vasopressin has been d/c. Pt is also receiving feeds of Glucerna 1.5 at 20 ml/hr currently. Recommended for pt to switch from Glucerna 1.5 to Vital HP and only trickle feed pt if pt is medically feasible and hemodynamically stable, MAP must be higher than 65. Spoke with nurse about TF change. Recommend a slow advancement to goal rate of 65 ml/hr of Vital HP when pt is no longer on pressors. Pt will be meeting 82% of his recommended minimum calorie needs and 105% of his recommended minimum protein needs with goal rate. Will continue to monitor. 02/08: Initial encounter with patient. Pt with a poor prognosis and palliative care has been discussed with family. Pt is orally intubated and sedated. was present at the bedside. New EN order noted and not infusing at time of visit. Glucerna 1.5 at 40ml/hr would provide 728.64ml of free H2O not including water flushes, 1440 kcals, and 79.2g of protein. Pt is DNR. Diet Hx: Pt has no known food allergies. No nausea, vomiting or diarrhea. 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 Principal Problems/Diagnoses: Acute respiratory failure, pneumonia PMH: Gout, CAD, CKD stage 1, T2DM, atrial fibrillation, hypothyroid, systolic heart failure, seizure DO overweight/obesity, respiratory failure, TBI GI: Abd: soft, large, round Skin: Intact Labs: 02/10: B-Margie peptide 388.6, Mg 2.1, Lactic Acid 9.1, POC Gluc 136 Meds: cardizem, digoxin, fentanyl, lovenox, k-phos, protonix, potassium chloride given, abx, meropenem, synthroid, flomax, norepinephrine at 3 mcg/min, Ht:74 in Wt:347 lbs BMI:44.6kg/m2 IBW:190 lbs (86.3 kg) Malnutrition Evaluation () The patient does not meet criteria for a specified degree of malnutrition at this time. Will re-evaluate at follow-up as appropriate. Nutrition Prescription (Diet Order): Glucerna 1.5 at 40 ml/hr Estimated Nutritional Needs: Calories: 5755-3302 kcal/day(22-25) Weight used : IBW (intubated) Protein : 129 -172 gram protein/day(1.5-2) Weight used: IBW (intubated) Diet Adequacy: Not meeting calorie needs, Not meeting protein needs-pt is only receiving 20 ml/hr of Glucerna 1.5 Diet Education Needs Assessment: Diet education not indicated, patient on temporary/transition diet. Nutrition Care Level: MOD Nutrition Diagnosis: Inadequate energy intake related to medical condition as evidenced by need for tube feeding d/t mechanical ventilation. Goal: Patient will meet 75-100% of estimated needs by follow up Progress: Progressing Interventions: Composition, Rate, Route, IVF, Prescription medications, Collaboration with other providers Monitoring/Evaluation: -Total energy intake, Total protein intake, Formula/Solution, IVF, Prescription medication Signed: Yamilet Dumont RD, DELILAH Addendum: 02/10/19 at 1254 by Yamilet Dumont DIET Trickle feeds (10 ml/hr) of Vital HP.
--- NOTE | 2019-02-10 15:23 | NUR ---
paged dr cisneros regarding [facility]
[2019-02-10] MEDS: NOREPINEPHRINE INJ 4MG/4ML 8 MG in DEXTROSE 5% 250ML 250 ML IV SCH (16:08)
--- NOTE | 2019-02-10 16:15 | Diagnostic Imaging Report ---
Exam: CT chest, abdomen, and pelvis Clinical history: Pneumonia, sepsis Technique: Helical images of the chest, abdomen, and pelvis were obtained without contrast DOSE REDUCTION: The exams was performed according to the departmental dose-optimization program which includes automated exposure control, adjustment of the mA and/or kV according to patient size and/or use of iterative reconstruction technique. Findings: Chest: Bilateral pleural effusion as well as patchy airway opacities are noted most consistent with pneumonitis. The tracheobronchial tree is clear. The cardiac size is enlarged. There is no evidence of pneumothorax. Multiple precarinal and pretracheal lymph nodes are noted measuring up to 1.5 cm in its short axis. The great vessels are normal in caliber and orientation. Abdomen and pelvis: Secondary to beam hardening artifact, the upper abdomen structures were not well visualized. A 10.5 x 11.8 cm hypodense structure is seen in the posterior segment of the right hepatic lobe, this may represent a hepatic cyst. However, due to lack of IV contrast, further characterization was not possible. The spleen, adrenal glands, and kidneys are unremarkable. The pancreas appears fatty replaced. The gallbladder appears ill-defined with possible pericholecystic fluid. Acute inflammatory disease of the gallbladder cannot be excluded. The small and large bowels are normal in caliber. Moderate retained feces are noted throughout the colon. Small amount of perihepatic fluid is noted consistent with ascites. There is no evidence of lymphadenopathy. The aorta and IVC are normal in caliber. Atherosclerotic calcification of the aorta is noted. A small periumbilical hernia containing fat is noted measuring 2.8 cm in diameter. A Hogan catheter is seen within the bladder. Impression: 1. Bilateral moderate pleural effusions with associated atelectasis. 2. Bilateral patchy airway opacities most consistent with acute pneumonitis. 3. The visualization of the upper abdomen was suboptimal secondary to beam hardening artifact. However, there appears to be inflammatory changes in the gallbladder. If indicated, ultrasound is recommended for further assessment. 4. Hypodense structure in the posterior segment of the right hepatic lobe measuring up to 11.8 cm. This may represent a hepatic cyst. Ultrasound can be performed for further crack sensation. 5. Small ascites. 6. Small periumbilical hernia. Signed by: Dr. Freddie Alvarado MD on 02/10/2019 4:12 PM
[2019-02-10] MEDS: TAMSULOSIN HCL 0.4 MG CAP PO SCH (16:19)
[2019-02-11] VITALS (26 sets, daily range): BP systolic 80–137; BP diastolic 47–87
[2019-02-11] MEDS: DILTIAZEM HCL 30 MG TAB PO SCH ×4 (01:14→17:07)
[2019-02-11] MEDS: MIDAZOLAM HCL 25 MG in SODIUM CHLORIDE 0.9% 50ML 45 ML IV PRN ×4 (02:16→21:19)
[2019-02-11 05:10] LABS: BASOPHILS % 0.1 % (0.0-1.0); EOSINOPHILS # (AUTO) 0.2 (0.0-0.4); EOSINOPHILS % 2.7 % (0.0-6.0); HEMATOCRIT 32.8 % (38.2-49.6); HEMOGLOBIN 9.8 g/dL (14.0-18.0); LYMPHOCYTES # (AUTO) 0.8 (1.0-3.2); LYMPHOCYTES % 9.4 % (18.0-39.1); MEAN CORPUSCULAR HEMOGLOBIN 26.7 pg (28-32); MEAN CORPUSCULAR HGB CONC 29.9 g/dL (31-35); MEAN CORPUSCULAR VOLUME 89.4 fL (81-99); MONOCYTES # (AUTO) 0.4 (0.2-0.8); MONOCYTES % 4.1 % (4.4-11.3); NEUTROPHILS % 83.3 % (38.7-80.0); PLATELET COUNT 159 x10e3/uL (140-360); RED BLOOD COUNT 3.67 x10e6/uL (4.3-5.7)
--- NOTE | 2019-02-11 05:11 | Diagnostic Imaging Report ---
Examination: Single AP view of the chest. COMPARISON: CT chest 02/10/2019, chest radiograph 02/10/2019 INDICATION: Pneumonia, CHF DISCUSSION: Endotracheal tube, enteric tube, and right internal jugular approach central venous catheter are unchanged in position. Cardiomegaly with bilateral interstitial and alveolar opacities, right worse then left, grossly unchanged relative to 02/10/2019. Moderate bilateral pleural effusions right larger than left. No acute osseous abnormality. IMPRESSION: Stable position of support lines and tubes. Persistent cardiomegaly with pulmonary edema and moderate bilateral pleural effusions, right larger than left. Signed by: Dr. Óscar Lopez M.D. on 02/11/2019 5:08 AM
[2019-02-11 05:21] LABS: INR 1.26; PROTHROMBIN TIME 16.4 seconds (11.9-14.5)
[2019-02-11 05:30] LABS: ALANINE AMINOTRANSFERASE 23 IU/L (0-55); ALBUMIN 2.4 g/dL (3.5-5.0); ALBUMIN/GLOBULIN RATIO 0.6 (0.8-2.0); ALKALINE PHOSPHATASE 108 IU/L (40-150); ANION GAP 12.2 mmol/L (8-16); BLOOD UREA NITROGEN 27 mg/dL (7-26); BUN/CREATININE RATIO 33 (6-25); CALCIUM 8.8 mg/dL (8.4-10.2); CARBON DIOXIDE 32 mmol/L (22-29); CHLORIDE 100 mmol/L (98-107); CREATININE, SERUM 0.82 mg/dL (0.72-1.25); EST GLOMERULAR FILTRATION RATE > 60 ML/MIN (60-); GLUCOSE 139 mg/dL (74-118); POTASSIUM 3.2 mmol/L (3.5-5.1); SODIUM 141 mmol/L (136-145)
--- NOTE | 2019-02-11 05:58 | Diagnostic Imaging Report ---
Examination: Single AP view of the chest. COMPARISON: Earlier 02/11/2019 INDICATION: Self extubated, re-intubation DISCUSSION: Enteric tube is no longer present. Endotracheal tube tip projects 3.8 cm above the [place]. Right internal jugular central venous catheter is unchanged in position. Persistent cardiomegaly with bilateral interstitial and alveolar opacities right worse then left, unchanged. No acute osseous abnormalities. Postsurgical changes of the bilateral shoulders. IMPRESSION: Endotracheal tube tip projects approximately 3.8 cm above the [place]. Interval removal of enteric tube. Stable position of right internal jugular central venous catheter. No appreciable interval change in the appearance of the heart or lungs relative to 0449 hours when accounting for differences in technique. Signed by: Dr. Óscar Lopez M.D. on 02/11/2019 5:54 AM
[2019-02-11] MEDS: LEVOTHYROXINE SODIUM 50 MCG TAB PO SCH (06:00)
[2019-02-11] MEDS: MEROPENEM 500MG/ NS 50ML 50 ML IV SCH ×3 (06:06→21:36)
--- NOTE | 2019-02-11 06:10 | NUR ---
Dr Dong notified that patient had self extubated and was reintubated. no new orders
[2019-02-11 06:47] LABS: EOSINOPHILS % (MANUAL) 2 % (0-7); LYMPHOCYTES % (MANUAL) 10 % (19-48); MONOCYTES % (MANUAL) 6 % (3.4-9.0); NEUTROPHILS % (MANUAL) 82 % (40-74); PLATELET ESTIMATE MODERATELY DECREASED; RBC MORPHOLOGY COMMENT NORMAL
[2019-02-11] MEDS: VANCOMYCIN 1GM/NS 250 ML 250 ML IV SCH ×2 (06:50→16:17)
[2019-02-11] MEDS: FENTANYL CITRATE INJ 2,000 MCG in SODIUM CHLORIDE 0.9% 250ML 210 ML IV PRN (06:51)
[2019-02-11] MEDS ORDERED: POTASSIUM CHLORIDE 20MEQ/100ML 200 ML IV ONE (07:30)
[2019-02-11] MEDS: ENOXAPARIN SODIUM INJ 100 MG/ML SYR SC SCH ×2 (08:47→20:14)
[2019-02-11] MEDS: PANTOPRAZOLE 40 MG 10ML VIAL IV SCH (08:47)
--- NOTE | 2019-02-11 09:06 | NUR ---
PER BEDSIDE NURSE, PATIENT C/W INTUB/SED/VENT, FEBRILE. PRESSORS DC ON 02/10. PER DR. PERSAUD, HE WILL SPEAK WITH FAMILY REGARDING CONTINUED INTUBATION V TRACH. PATIENT SELF EXTUBATED ON 02/10 - DID NOT TOLERATE. PATIENT WAS INTUBATED AGAIN. CM WILL CONTINUE TO FOLLOW FOR ONGOING ASSESSMENT OF DC NEEDS.
[2019-02-11] MEDS ORDERED: DIGOXIN INJ 0.25 MG/ML 2 ML AMP IV ONE (09:15)
[2019-02-11 09:20] LABS: ABG PCO2 37 mmHg (41-51); ABG PH 7.52 (7.31-7.41)
[2019-02-11 09:21] LABS: ABG HCO3 31 mmol/L (23-28); ABG PO2 77 mmHg (80-105)
[2019-02-11] MEDS ORDERED: SODIUM CHLORIDE 0.9% 1000ML 1,000 ML IV ONE (10:00)
--- NOTE | 2019-02-11 13:30 | Diagnostic Imaging Report ---
EXAM: ABDOMEN-1VIEW (KUB) DATE: 02/11/2019 7:26 AM INDICATION: NG tube placement COMPARISON: None FINDINGS: Multiple AP views of the abdomen were obtained. On the final AP view the abdomen, and enteric tube is identified coursing below the diaphragm with distal tip terminating within the left upper quadrant at the expected region of the body the stomach. Bowel gas pattern appears nonspecific. Multiple air-filled loops of large bowel noted. No obvious intraperitoneal free air is appreciated on this single view examination. IMPRESSION: Enteric tube tip appropriately terminating within the left upper quadrant in the expected region of the body the stomach. Signed by: Dr. Rui Blevins MD on 02/11/2019 1:27 PM
[2019-02-11] MEDS: PHOSPHORUS 250 MG TAB PO SCH (14:21)
[2019-02-11] MEDS: ALLOPURINOL 300 MG TAB PO SCH (14:21)
[2019-02-11] MEDS: FINASTERIDE 5 MG TAB PO SCH ×2 (14:21→16:17)
[2019-02-11] MEDS: DIGOXIN 0.25 MG TAB PO SCH (14:21)
[2019-02-11] MEDS: NOREPINEPHRINE INJ 4MG/4ML 8 MG in DEXTROSE 5% 250ML 250 ML IV SCH (14:46)
--- NOTE | 2019-02-11 14:58 | Diagnostic Imaging Report ---
EXAM: US ABDOMEN COMPLETE DATE: 02/11/2019 12:00 AM INDICATION: Abdominal pain COMPARISON: CT from 02/10/2019 FINDINGS: Please of the examination is limited secondary the patient's body habitus and inability to comply with optimal positioning. The pancreas is not well-visualized secondary to prominent adjacent bowel gas. The liver is normal in size measuring 15.8 cm in length. The hepatic parenchyma appears homogeneous. There is a 11.8 x 10.9 x 10.3 cm cyst identified within/arising from the right hepatic lobe. No solid hepatic lesion is identified. The main portal vein is patent with antegrade flow and diameter of 1.4 cm. The gallbladder is difficult to visualize but appears nondistended without evidence for shadowing stones, wall thickening, or pericholecystic fluid. There is no intra or extra hepatic biliary ductal dilatation. The common bile duct measures 7 mm. Sonographic Bess's sign is negative. The spleen is not well-visualized secondary to prominent bowel gas and patient's inability to comply with positioning. The right kidney is normal in size measuring 12.7 cm in length normal cortical thickness and echogenicity. The left kidney cannot be visualized which may be secondary to prominent adjacent bowel gas The visualized portions of the aorta and IVC are within normal limits. There is no ascites present. IMPRESSION: Right hepatic cyst. Unremarkable sonographic appearance the gallbladder. Suboptimal visualization of midline structures, left kidney, and spleen secondary to patient body habitus and inability to comply with multiple positioning. Signed by: Dr. Rui Blevins MD on 02/11/2019 2:55 PM
[2019-02-11] MEDS: TAMSULOSIN HCL 0.4 MG CAP PO SCH (15:54)
[2019-02-11] MEDS ORDERED: ETOMIDATE 40 MG/ 20ML VIAL IV ONE (18:20)
[2019-02-11] MEDS ORDERED: SUCCINYLCHOLINE CHLORIDE 20 MG/ML 10ML VIAL ONE (18:20)
[2019-02-12] VITALS (25 sets, daily range): BP systolic 93–136; BP diastolic 54–104
[2019-02-12] MEDS: DILTIAZEM HCL 30 MG TAB PO SCH ×4 (00:38→17:14)
[2019-02-12] MEDS: FENTANYL CITRATE INJ 2,000 MCG in SODIUM CHLORIDE 0.9% 250ML 210 ML IV PRN (01:41)
[2019-02-12] MEDS: MIDAZOLAM HCL 25 MG in SODIUM CHLORIDE 0.9% 50ML 45 ML IV PRN ×4 (01:41→21:45)
[2019-02-12] MEDS: VANCOMYCIN 1GM/NS 250 ML 250 ML IV SCH (05:00)
[2019-02-12 05:26] LABS: BASOPHILS % 0.2 % (0.0-1.0); EOSINOPHILS # (AUTO) 0.1 (0.0-0.4); EOSINOPHILS % 2.9 % (0.0-6.0); HEMATOCRIT 29.2 % (38.2-49.6); HEMOGLOBIN 8.4 g/dL (14.0-18.0); LYMPHOCYTES # (AUTO) 0.6 (1.0-3.2); LYMPHOCYTES % 13.6 % (18.0-39.1); MEAN CORPUSCULAR HEMOGLOBIN 26.2 pg (28-32); MEAN CORPUSCULAR HGB CONC 28.8 g/dL (31-35); MONOCYTES # (AUTO) 0.3 (0.2-0.8); MONOCYTES % 6.3 % (4.4-11.3); NEUTROPHILS # (AUTO) 3.4 (2.1-6.9); NEUTROPHILS % 76.5 % (38.7-80.0); PLATELET COUNT 153 x10e3/uL (140-360); RED BLOOD COUNT 3.21 x10e6/uL (4.3-5.7); RED CELL DISTRIBUTION WIDTH 16.2 % (11.7-14.4)
[2019-02-12] MEDS: MEROPENEM 500MG/ NS 50ML 50 ML IV SCH ×3 (05:27→21:28)
[2019-02-12 05:34] LABS: ALANINE AMINOTRANSFERASE 29 IU/L (0-55); ALBUMIN 2.1 g/dL (3.5-5.0); ALBUMIN/GLOBULIN RATIO 0.6 (0.8-2.0); ALKALINE PHOSPHATASE 90 IU/L (40-150); ANION GAP 8.3 mmol/L (8-16); BLOOD UREA NITROGEN 27 mg/dL (7-26); BUN/CREATININE RATIO 34 (6-25); CALCIUM 8.3 mg/dL (8.4-10.2); CARBON DIOXIDE 32 mmol/L (22-29); CHLORIDE 104 mmol/L (98-107); EST GLOMERULAR FILTRATION RATE > 60 ML/MIN (60-); GLUCOSE 123 mg/dL (74-118); POTASSIUM 3.3 mmol/L (3.5-5.1); SODIUM 141 mmol/L (136-145)
[2019-02-12] MEDS: LEVOTHYROXINE SODIUM 50 MCG TAB PO SCH (05:46)
--- NOTE | 2019-02-12 06:51 | NUR ---
Page out to Dr. Obregon about [facility].
--- NOTE | 2019-02-12 07:04 | NUR ---
Dr. Obregon returned page, ordered to hold vanc for today and resume tomorrow.
[2019-02-12] MEDS: PHOSPHORUS 250 MG TAB PO SCH (08:03)
[2019-02-12] MEDS: PANTOPRAZOLE 40 MG 10ML VIAL IV SCH (08:03)
[2019-02-12] MEDS: DIGOXIN 0.25 MG TAB PO SCH (08:04)
[2019-02-12] MEDS: FINASTERIDE 5 MG TAB PO SCH ×2 (08:04→16:15)
[2019-02-12] MEDS: ALLOPURINOL 300 MG TAB PO SCH (08:04)
[2019-02-12] MEDS ORDERED: POTASSIUM CHLORIDE 20MEQ/100ML 200 ML IV ONE (09:45)
[2019-02-12 09:53] LABS: ABG HCO3 29 mmol/L (23-28); ABG PCO2 36 mmHg (41-51); ABG PH 7.52 (7.31-7.41); ABG PO2 71 mmHg (80-105)
--- NOTE | 2019-02-12 11:36 | Diagnostic Imaging Report ---
Exam: Limited thoracic ultrasound Findings: Limited sonographic evaluation of bilateral chest were obtained which demonstrated trace free fluid in the left pleural space. Thoracentesis was not performed. Signed by: Dr. Freddie Alvarado MD on 02/12/2019 11:33 AM
[2019-02-12] MEDS: NOREPINEPHRINE INJ 4MG/4ML 8 MG in DEXTROSE 5% 250ML 250 ML IV SCH (13:33)
[2019-02-12] MEDS: TAMSULOSIN HCL 0.4 MG CAP PO SCH (16:15)
[2019-02-12] MEDS: VANCOMYCIN HCL 1.25 GM in SODIUM CHLORIDE 0.9% 250ML 250 ML IV SCH (18:22)
[2019-02-13] VITALS (28 sets, daily range): BP systolic 99–191; BP diastolic 53–109
[2019-02-13] MEDS: DILTIAZEM HCL 30 MG TAB PO SCH ×5 (00:05→23:55)
[2019-02-13] MEDS: MIDAZOLAM HCL 25 MG in SODIUM CHLORIDE 0.9% 50ML 45 ML IV PRN ×3 (02:45→20:03)
[2019-02-13] MEDS: FENTANYL CITRATE INJ 2,000 MCG in SODIUM CHLORIDE 0.9% 250ML 210 ML IV PRN ×2 (02:45→17:00)
[2019-02-13 05:07] LABS: BASOPHILS % 0.4 % (0.0-1.0); EOSINOPHILS # (AUTO) 0.2 (0.0-0.4); EOSINOPHILS % 3.3 % (0.0-6.0); HEMATOCRIT 32.6 % (38.2-49.6); HEMOGLOBIN 9.4 g/dL (14.0-18.0); LYMPHOCYTES # (AUTO) 0.8 (1.0-3.2); LYMPHOCYTES % 16.3 % (18.0-39.1); MEAN CORPUSCULAR HEMOGLOBIN 26.4 pg (28-32); MEAN CORPUSCULAR HGB CONC 28.8 g/dL (31-35); MEAN CORPUSCULAR VOLUME 91.6 fL (81-99); MONOCYTES # (AUTO) 0.4 (0.2-0.8); MONOCYTES % 8.3 % (4.4-11.3); NEUTROPHILS # (AUTO) 3.6 (2.1-6.9); NEUTROPHILS % 71.1 % (38.7-80.0); PLATELET COUNT 180 x10e3/uL (140-360); RED BLOOD COUNT 3.56 x10e6/uL (4.3-5.7)
[2019-02-13 05:38] LABS: ALANINE AMINOTRANSFERASE 33 IU/L (0-55); ALBUMIN 2.2 g/dL (3.5-5.0); ALBUMIN/GLOBULIN RATIO 0.6 (0.8-2.0); ALKALINE PHOSPHATASE 93 IU/L (40-150); ANION GAP 11.8 mmol/L (8-16); BLOOD UREA NITROGEN 25 mg/dL (7-26); BUN/CREATININE RATIO 29 (6-25); CALCIUM 8.5 mg/dL (8.4-10.2); CARBON DIOXIDE 30 mmol/L (22-29); CHLORIDE 106 mmol/L (98-107); CREATININE, SERUM 0.85 mg/dL (0.72-1.25); EST GLOMERULAR FILTRATION RATE > 60 ML/MIN (60-); GLUCOSE 130 mg/dL (74-118); POTASSIUM 3.8 mmol/L (3.5-5.1); SODIUM 144 mmol/L (136-145)
[2019-02-13] MEDS ORDERED: SODIUM CHLORIDE 0.9% 250ML 250 ML ONE (05:55)
[2019-02-13] MEDS: MEROPENEM 500MG/ NS 50ML 50 ML IV SCH ×3 (06:11→21:52)
[2019-02-13] MEDS: LEVOTHYROXINE SODIUM 50 MCG TAB PO SCH (06:12)
--- NOTE | 2019-02-13 06:26 | Diagnostic Imaging Report ---
Examination: Single AP view of the chest. COMPARISON: 02/11/2019 INDICATION: CHF, pneumonia DISCUSSION: Lines/tubes: Endotracheal tube is unchanged in position when accounting for differences in technique and patient positioning. Enteric tube has been placed. The tip is off the current radiograph, inferior to the left hemidiaphragm. Right internal jugular central venous catheter is unchanged in position. Lungs: No appreciable interval change in patchy multifocal consolidations relative to 02/11/2019. Pleura: Small right pleural effusion is suspected. Heart and mediastinum: Stable cardiomediastinal contour Bones and soft tissues: No acute bony abnormalities. Postsurgical changes of the proximal left humerus. IMPRESSION: Interval placement of an enteric tube. Stable position of endotracheal tube and right internal jugular central venous catheter. Persistent cardiomegaly with patchy bilateral consolidations, right worse left Signed by: Dr. Óscar Lopez M.D. on 02/13/2019 6:23 AM
[2019-02-13 07:16] LABS: EOSINOPHILS % (MANUAL) 3 % (0-7); LYMPHOCYTES % (MANUAL) 17 % (19-48); MONOCYTES % (MANUAL) 7 % (3.4-9.0); NEUTROPHILS % (MANUAL) 73 % (40-74)
[2019-02-13 07:17] LABS: HYPOCHROMASIA SLIGHT; PLATELET ESTIMATE MODERATELY DECREASED; RBC MORPHOLOGY COMMENT NORMAL
[2019-02-13] MEDS: FLUCONAZOLE 200 MG/100 ML 100 ML IV SCH (08:59)
[2019-02-13] MEDS: PANTOPRAZOLE 40 MG 10ML VIAL IV SCH (08:59)
[2019-02-13] MEDS: APIXABAN 5 MG TABLET PO SCH ×2 (08:59→16:48)
[2019-02-13] MEDS: FINASTERIDE 5 MG TAB PO SCH ×2 (09:00→16:48)
[2019-02-13] MEDS: PHOSPHORUS 250 MG TAB PO SCH (09:00)
[2019-02-13] MEDS: ALLOPURINOL 300 MG TAB PO SCH (09:00)
[2019-02-13] MEDS: DIGOXIN 0.25 MG TAB PO SCH (09:00)
[2019-02-13] MEDS ORDERED: FUROSEMIDE INJ 10 MG/ML 4 ML VIAL IV SCH (09:00)
[2019-02-13 10:45] LABS: ABG HCO3 29 mmol/L (23-28); ABG PCO2 45 mmHg (41-51); ABG PH 7.42 (7.31-7.41); ABG PO2 64 mmHg (80-105)
[2019-02-13] MEDS ORDERED: FUROSEMIDE INJ 10 MG/ML 4 ML VIAL IV ONE (11:30)
[2019-02-13] MEDS: METOPROLOL TARTRATE 25 MG TAB PO SCH ×3 (12:47→23:55)
--- NOTE | 2019-02-13 15:59 | NUR ---
Nutrition Follow-up Note RD Recommendation(s) for Physician: TF recommendation: -Rec continuous TF with Glucerna 1.5 at goal rate of 55mL/hr (1980kcal, 109g protein, and 1002mL water) -IVF management and additional flushes per MD. -Blood glucose monitoring and insulin management per MD. Plan of Care: RD following, monitoring for tolerance and adequacy Nutrition reason for involvement: Follow up RD Assessment 02/13: Discussed case with RN. Pt remained on the vent and intubated. Pressor meds were discontinued. Tolerating continuous TF with Glucerna 1.5 @65mL/hr with minimal gastric residual. No other GI issue reported. Will continue to monitor and follow. 02/10: Follow up: Pt is intubated and sedated on fentanyl and versed, no propofol. Pt is on pressor support, pt is receiving norepinephrine at 3 mcg/min, vasopressin has been d/c. Pt is also receiving feeds of Glucerna 1.5 at 20 ml/hr currently. Recommended for pt to switch from Glucerna 1.5 to Vital HP and only trickle feed pt if pt is medically feasible and hemodynamically stable, MAP must be higher than 65. Spoke with nurse about TF change. Recommend a slow advancement to goal rate of 65 ml/hr of Vital HP when pt is no longer on pressors. Pt will be meeting 82% of his recommended minimum calorie needs and 105% of his recommended minimum protein needs with goal rate. Will continue to monitor. 02/08: Initial encounter with patient. Pt with a poor prognosis and palliative care has been discussed with family. Pt is orally intubated and sedated. was present at the bedside. New EN order noted and not infusing at time of visit. Glucerna 1.5 at 40ml/hr would provide 728.64ml of free H2O not including water flushes, 1440 kcals, and 79.2g of protein. Pt is DNR. Diet Hx: Pt has no known food allergies. No nausea, vomiting or diarrhea. 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 Principal Problems/Diagnoses: Acute respiratory failure, pneumonia PMH: Gout, CAD, CKD stage 1, T2DM, atrial fibrillation, hypothyroid, systolic heart failure, seizure DO overweight/obesity, respiratory failure, TBI GI: Abd: soft, non-tender, round Skin: Intact Labs: 02/13: Glucose 140 H, AST 49 H, BNP 578 H 02/10: B-Margie peptide 388.6, Mg 2.1, Lactic Acid 9.1, POC Gluc 136 Meds: Phosphorus, eliquis, protonix, synthroid, fentanyl Ht: 74 in Wt: 347 lbs; 354lb BMI: 44.6 kg/m2 IBW: 190 lbs (86.3 kg) Malnutrition Evaluation (02/10) The patient does not meet criteria for a specified degree of malnutrition at this time. Will re-evaluate at follow-up as appropriate. Nutrition Prescription (Diet Order): Glucerna 1.5 at 40 ml/hr Estimated Nutritional Needs: Calories: 7176-8681 kcal/day (22-25) Weight used : IBW (intubated) Protein: 129 -172 gram protein/day(1.5-2) Weight used: IBW (intubated) Diet Adequacy: meeting calorie needs, meeting protein needs Diet Education Needs Assessment: Diet education not indicated, patient on temporary/transition diet. Nutrition Care Level: MOD Nutrition Diagnosis: Inadequate energy intake related to medical condition as evidenced by need for tube feeding d/t mechanical ventilation. Goal: Patient will meet 75-100% of estimated needs by follow up Progress: Goal met Interventions: Composition, Rate, Route Monitoring/Evaluation: -Total energy intake, Total protein intake, Formula/Solution, Weight change Signed: Jessica Velez MS, RD, LD
[2019-02-13] MEDS: NOREPINEPHRINE INJ 4MG/4ML 8 MG in DEXTROSE 5% 250ML 250 ML IV SCH (16:15)
[2019-02-13] MEDS: TAMSULOSIN HCL 0.4 MG CAP PO SCH (16:34)
[2019-02-13] MEDS: VANCOMYCIN HCL 1.25 GM in SODIUM CHLORIDE 0.9% 250ML 250 ML IV SCH (16:35)
[2019-02-14] VITALS (25 sets, daily range): BP systolic 98–159; BP diastolic 54–106
[2019-02-14 05:04] LABS: BASOPHILS % 0.3 % (0.0-1.0); EOSINOPHILS # (AUTO) 0.1 (0.0-0.4); EOSINOPHILS % 2.1 % (0.0-6.0); HEMATOCRIT 31.5 % (38.2-49.6); HEMOGLOBIN 8.9 g/dL (14.0-18.0); LYMPHOCYTES # (AUTO) 0.9 (1.0-3.2); LYMPHOCYTES % 15.8 % (18.0-39.1); MEAN CORPUSCULAR HGB CONC 28.3 g/dL (31-35); MEAN CORPUSCULAR VOLUME 92.1 fL (81-99); MONOCYTES # (AUTO) 0.4 (0.2-0.8); MONOCYTES % 7.3 % (4.4-11.3); NEUTROPHILS # (AUTO) 4.3 (2.1-6.9); NEUTROPHILS % 73.8 % (38.7-80.0); PLATELET COUNT 217 x10e3/uL (140-360); RED BLOOD COUNT 3.42 x10e6/uL (4.3-5.7); RED CELL DISTRIBUTION WIDTH 16.2 % (11.7-14.4)
[2019-02-14 05:18] LABS: ANION GAP 9.1 mmol/L (8-16); BLOOD UREA NITROGEN 24 mg/dL (7-26); BUN/CREATININE RATIO 28 (6-25); CALCIUM 8.7 mg/dL (8.4-10.2); CARBON DIOXIDE 34 mmol/L (22-29); CHLORIDE 108 mmol/L (98-107); CREATININE, SERUM 0.86 mg/dL (0.72-1.25); EST GLOMERULAR FILTRATION RATE > 60 ML/MIN (60-); GLUCOSE 125 mg/dL (74-118); POTASSIUM 4.1 mmol/L (3.5-5.1); SODIUM 147 mmol/L (136-145)
[2019-02-14] MEDS: MEROPENEM 500MG/ NS 50ML 50 ML IV SCH ×3 (05:36→21:05)
[2019-02-14] MEDS: METOPROLOL TARTRATE 25 MG TAB PO SCH ×2 (05:39→12:15)
[2019-02-14] MEDS: DILTIAZEM HCL 30 MG TAB PO SCH ×3 (05:39→16:49)
[2019-02-14] MEDS: LEVOTHYROXINE SODIUM 50 MCG TAB PO SCH (05:39)
[2019-02-14] MEDS: FENTANYL CITRATE INJ 2,000 MCG in SODIUM CHLORIDE 0.9% 250ML 210 ML IV PRN (06:10)
[2019-02-14] MEDS: MIDAZOLAM HCL 25 MG in SODIUM CHLORIDE 0.9% 50ML 45 ML IV PRN (06:10)
[2019-02-14 06:26] LABS: EOSINOPHILS % (MANUAL) 2 % (0-7); LYMPHOCYTES % (MANUAL) 12 % (19-48); MONOCYTES % (MANUAL) 6 % (3.4-9.0); NEUTROPHILS % (MANUAL) 80 % (40-74); PLATELET ESTIMATE ADEQUATE; RBC MORPHOLOGY COMMENT NORMAL
[2019-02-14] MEDS: FLUCONAZOLE 200 MG/100 ML 100 ML IV SCH (09:15)
[2019-02-14] MEDS ORDERED: FUROSEMIDE INJ 10 MG/ML 4 ML VIAL IV NR (09:30)
--- NOTE | 2019-02-14 10:12 | NUR ---
patient extubated at 0958am to bipap. patient calm and denies any distress. no stridor noted. sats 95% bipap. [id number], hr 115 afib with nbp 158/135. at bedside. dr. gaytan at bedside during extubation.
[2019-02-14] MEDS: APIXABAN 5 MG TABLET PO SCH ×2 (10:16→16:11)
[2019-02-14] MEDS: DIGOXIN 0.25 MG TAB PO SCH (10:16)
[2019-02-14] MEDS: PHOSPHORUS 250 MG TAB PO SCH (10:16)
[2019-02-14] MEDS: PANTOPRAZOLE 40 MG 10ML VIAL IV SCH (10:16)
[2019-02-14] MEDS: FINASTERIDE 5 MG TAB PO SCH ×2 (10:17→16:10)
[2019-02-14] MEDS: ALLOPURINOL 300 MG TAB PO SCH (10:17)
[2019-02-14] MEDS ORDERED: FUROSEMIDE INJ 10 MG/ML 2 ML VIAL ONE (10:32)
[2019-02-14 10:41] LABS: ABG HCO3 32 mmol/L (23-28); ABG PCO2 52 mmHg (41-51); ABG PH 7.39 (7.31-7.41); ABG PO2 60 mmHg (80-105)
[2019-02-14] MEDS: TAMSULOSIN HCL 0.4 MG CAP PO SCH (16:11)
[2019-02-14] MEDS: VANCOMYCIN HCL 1.25 GM in SODIUM CHLORIDE 0.9% 250ML 250 ML IV SCH (17:34)
[2019-02-14] MEDS ORDERED: METOPROLOL TARTRATE 25 MG TAB PO SCH (18:00)
[2019-02-14] MEDS: METOPROLOL TARTRATE 50 MG TAB PO SCH ×2 (18:37→23:30)
--- NOTE | 2019-02-14 19:00 | NUR ---
Bedside report received from Annelise Lopez RN. Pt received resting in bed, pt reports no pain or discomfort at this time, care plan reviewed, no family present.
[2019-02-15] VITALS (28 sets, daily range): BP systolic 96–169; BP diastolic 58–122
[2019-02-15 05:24] LABS: BASOPHILS % 0.1 % (0.0-1.0); EOSINOPHILS # (AUTO) 0.1 (0.0-0.4); EOSINOPHILS % 0.7 % (0.0-6.0); HEMATOCRIT 34.8 % (38.2-49.6); LYMPHOCYTES # (AUTO) 0.9 (1.0-3.2); LYMPHOCYTES % 9.9 % (18.0-39.1); MEAN CORPUSCULAR HEMOGLOBIN 26.2 pg (28-32); MEAN CORPUSCULAR HGB CONC 28.7 g/dL (31-35); MEAN CORPUSCULAR VOLUME 91.3 fL (81-99); MONOCYTES # (AUTO) 0.5 (0.2-0.8); MONOCYTES % 6.3 % (4.4-11.3); NEUTROPHILS # (AUTO) 7.1 (2.1-6.9); NEUTROPHILS % 82.5 % (38.7-80.0); PLATELET COUNT 274 x10e3/uL (140-360); RED BLOOD COUNT 3.81 x10e6/uL (4.3-5.7)
[2019-02-15 05:56] LABS: ALANINE AMINOTRANSFERASE 39 IU/L (0-55); ALBUMIN 2.4 g/dL (3.5-5.0); ALBUMIN/GLOBULIN RATIO 0.5 (0.8-2.0); ALKALINE PHOSPHATASE 101 IU/L (40-150); ANION GAP 15.2 mmol/L (8-16); BLOOD UREA NITROGEN 22 mg/dL (7-26); BUN/CREATININE RATIO 29 (6-25); CALCIUM 9.2 mg/dL (8.4-10.2); CARBON DIOXIDE 33 mmol/L (22-29); CHLORIDE 105 mmol/L (98-107); CREATININE, SERUM 0.77 mg/dL (0.72-1.25); EST GLOMERULAR FILTRATION RATE > 60 ML/MIN (60-); GLUCOSE 130 mg/dL (74-118); POTASSIUM 4.2 mmol/L (3.5-5.1); SODIUM 149 mmol/L (136-145)
--- NOTE | 2019-02-15 06:10 | Diagnostic Imaging Report ---
Examination: Single AP view of the chest. COMPARISON: 02/13/2019 INDICATION: CHF, pneumonia DISCUSSION: See impression IMPRESSION: 1. Interval extubation. Enteric tube and right internal jugular central venous catheter are unchanged in position. 2. When accounting for differences in technique, marginal interval improvement in patchy multifocal consolidations. Stable enlargement of the cardiac silhouette and bilateral pleural effusions. Signed by: Dr. Óscar Lopez M.D. on 02/15/2019 6:07 AM
[2019-02-15] MEDS: MEROPENEM 500MG/ NS 50ML 50 ML IV SCH ×3 (06:18→21:34)
[2019-02-15] MEDS: METOPROLOL TARTRATE 50 MG TAB PO SCH ×4 (06:18→23:31)
[2019-02-15] MEDS: LEVOTHYROXINE SODIUM 50 MCG TAB PO SCH (06:18)
--- NOTE | 2019-02-15 07:00 | NUR ---
Bedside report given to Nia Renteria RN. Care plan reviewed, no family at the bedside. Pt reports no pain at this time. Refer to vital signs for further information.
[2019-02-15] MEDS: DIGOXIN 0.25 MG TAB PO SCH (09:13)
[2019-02-15] MEDS: PANTOPRAZOLE 40 MG 10ML VIAL IV SCH (09:32)
[2019-02-15] MEDS: FLUCONAZOLE 200 MG/100 ML 100 ML IV SCH (09:32)
[2019-02-15] MEDS: PHOSPHORUS 250 MG TAB PO SCH (09:32)
[2019-02-15] MEDS: FINASTERIDE 5 MG TAB PO SCH ×2 (09:32→17:22)
[2019-02-15] MEDS: ALLOPURINOL 300 MG TAB PO SCH (09:32)
[2019-02-15] MEDS: APIXABAN 5 MG TABLET PO SCH ×2 (09:32→17:22)
--- NOTE | 2019-02-15 10:37 | NUR ---
Dr. Amos at bedside. notified of Code Sepsis alert. order to cancel Lactic Acid. Waiting for new orders. will continue to monitor
[2019-02-15] MEDS: FUROSEMIDE INJ 10 MG/ML 4 ML VIAL IV SCH ×3 (11:36→21:34)
[2019-02-15 11:37] LABS: ABG HCO3 32 mmol/L (23-28); ABG PCO2 57 mmHg (41-51); ABG PH 7.36 (7.31-7.41); ABG PO2 58 mmHg (80-105)
[2019-02-15] MEDS: OXYCODONE/ACETAMINOPHEN 5-325 1 EACH TABLET GT PRN (11:50)
[2019-02-15] MEDS: DEXMEDETOMIDINE HCL 200 MCG in SODIUM CHLORIDE 0.9% 50ML 48 ML IV PRN ×3 (12:00→20:43)
[2019-02-15] MEDS ORDERED: DILTIAZEM HCL 5 MG/ML 5 ML VIAL IV PRN (12:00)
[2019-02-15] MEDS ORDERED: FUROSEMIDE INJ 10 MG/ML 4 ML VIAL IV ONE ×2 (12:30→21:30)
--- NOTE | 2019-02-15 12:52 | Progress Note ---
DATE: 02/15/2019 SUBJECTIVE: Mr. Diaz is well known to me, 74-year-old white male, with history of morbidly obese patient, congestive heart failure, hypertension, hypercholesteremia, coronary artery disease, systolic congestive heart failure, atrial fibrillation, before multiple ablation, but failed; history of osteomyelitis, history of multiple debridement of his foot, on anticoagulation. The patient is disabled after a traumatic back injury. The patient who has a very caring taking care of him. The patient was admitted to the hospital with progressive shortness of breath and decline in overall condition. He came here, he was found to be febrile, short of breath, hypotensive. The patient was admitted, started on intravenous antibiotic. The patient originally was admitted to the hospital at [facility] on February 07, he has been here since then, today is February 15. He remains short of breath. An attempt to take him off BiPAP was unsuccessful. The patient is still short of breath with difficulty taking his deep breath. He is using his abdominal muscle. Little bit confused. at the bedside. PAST MEDICAL HISTORY: Hypertension, hypercholesteremia, coronary artery disease, and atrial fibrillation. PAST SURGICAL HISTORY: Tonsillectomy, right elbow surgery, and appendectomy. SOCIAL HISTORY: There is no smoking, drug abuse, or alcohol abuse. FAMILY HISTORY: Otherwise, hypertension. LABORATORY DATA: Blood cultures, negative. Sputum, showed Fiona. His white count is 8.6, hemoglobin 10.0. Sodium 149, potassium 4.2, creatinine 0.77. He had a BNP of 1073, came down to 578. MEDICATIONS: He is on Eliquis, fluconazole, Proscar, Protonix, meropenem, vancomycin, and gabapentin. IMAGING: Chest x-ray, which was done on the , showed marginal improvement, patchy multifocal consolidation. The patient had a CT abdomen and pelvis back on February 10, which showed bilateral perfusion. PHYSICAL EXAMINATION: GENERAL: Apprehensive, short of breath. VITAL SIGNS: Vital signs are stable. T-max has been 100.4. HEENT: Normocephalic. CHEST: Few crackles bilateral. COR: S1 and S2. No murmur. ABDOMEN: Soft. Bowel sounds present. EXTREMITIES: No edema. IMPRESSION: The patient with pulmonary edema, early respiratory failure. His shortness of breath is due to cardiac congestive heart failure, obesity, debility, maybe pneumonia, however, the patient has been on intravenous antibiotic since arrival with some improvement. The plan is to finish 8 days of antibiotic. His condition remains very guarded. Discussed with the . We will follow. MD FIGUEROA Paredes/BEL /[id number]
[2019-02-15] MEDS: GABAPENTIN 300 MG CAP PO SCH ×3 (13:00→21:00)
[2019-02-15] MEDS ORDERED: SODIUM CHLORIDE 0.9% 250ML 250 ML ONE (15:55)
[2019-02-15] MEDS: VANCOMYCIN HCL 1.25 GM in SODIUM CHLORIDE 0.9% 250ML 250 ML IV SCH (17:22)
[2019-02-15] MEDS: TAMSULOSIN HCL 0.4 MG CAP PO SCH (17:22)
--- NOTE | 2019-02-15 19:00 | NUR ---
Bedside report received from Nia Renteria RN. Care plan reviewed, pts family is present at the bedside.
--- NOTE | 2019-02-15 20:30 | NUR ---
Refer to documentation for Provider Notification for 2030.
[2019-02-15] MEDS ORDERED: ONDANSETRON HCL INJ 2MG/ML 2ML 2 MG/ML VIAL IV PRN (21:30)
[2019-02-16] VITALS (21 sets, daily range): BP systolic 107–162; BP diastolic 53–120
[2019-02-16] MEDS ORDERED: DEXMEDETOMIDINE 200MCG/NS 50ML 50 ML IV ONE (04:32)
[2019-02-16 06:04] LABS: BASOPHILS % 0.1 % (0.0-1.0); EOSINOPHILS # (AUTO) 0.1 (0.0-0.4); EOSINOPHILS % 0.8 % (0.0-6.0); HEMOGLOBIN 10.1 g/dL (14.0-18.0); LYMPHOCYTES # (AUTO) 0.9 (1.0-3.2); LYMPHOCYTES % 10.7 % (18.0-39.1); MEAN CORPUSCULAR HGB CONC 28.1 g/dL (31-35); MEAN CORPUSCULAR VOLUME 92.8 fL (81-99); MONOCYTES # (AUTO) 0.5 (0.2-0.8); MONOCYTES % 6.3 % (4.4-11.3); NEUTROPHILS # (AUTO) 6.7 (2.1-6.9); NEUTROPHILS % 81.5 % (38.7-80.0); PLATELET COUNT 322 x10e3/uL (140-360); RED BLOOD COUNT 3.88 x10e6/uL (4.3-5.7); RED CELL DISTRIBUTION WIDTH 15.9 % (11.7-14.4)
[2019-02-16] MEDS: MEROPENEM 500MG/ NS 50ML 50 ML IV SCH (06:25)
[2019-02-16] MEDS: LEVOTHYROXINE SODIUM 50 MCG TAB PO SCH (06:25)
[2019-02-16] MEDS: METOPROLOL TARTRATE 50 MG TAB PO SCH ×3 (06:25→18:38)
[2019-02-16 06:27] LABS: ALANINE AMINOTRANSFERASE 30 IU/L (0-55); ALBUMIN 2.5 g/dL (3.5-5.0); ALBUMIN/GLOBULIN RATIO 0.5 (0.8-2.0); ALKALINE PHOSPHATASE 95 IU/L (40-150); BLOOD UREA NITROGEN 29 mg/dL (7-26); BUN/CREATININE RATIO 37 (6-25); CALCIUM 9.3 mg/dL (8.4-10.2); CARBON DIOXIDE 35 mmol/L (22-29); CREATININE, SERUM 0.78 mg/dL (0.72-1.25); EST GLOMERULAR FILTRATION RATE > 60 ML/MIN (60-); GLUCOSE 118 mg/dL (74-118)
[2019-02-16 07:02] LABS: CHLORIDE 106 mmol/L (98-107); POTASSIUM 4.2 mmol/L (3.5-5.1); SODIUM 150 mmol/L (136-145)
[2019-02-16 07:11] LABS: ANION GAP 13.2 mmol/L (8-16)
--- NOTE | 2019-02-16 08:04 | Diagnostic Imaging Report ---
2 frontal views of the chest. HISTORY: CHF, pneumonia, acute respiratory COMPARISON: Chest radiograph February 15, 2019 DISCUSSION: Sensitivity limited by portable technique. Soft tissue attenuation partially limits sensitivity of the exam. Low lung volumes result in bibasilar vascular crowding, accentuation of the pulmonary interstitial markings, central pulmonary vasculature, and the cardiac silhouette. IMPRESSION: 1. The right internal jugular central venous catheter and visualized portions of the nasogastric/orogastric tube appear unchanged. 2. Stable bilateral pleural effusions with adjacent atelectasis. 3. Stable diffuse interstitial and airspace opacities, compatible with edema versus multifocal pneumonia. 4. No significant interval change. Signed by: Dr. Erasmo Lakhani D.O., M.M.M. on 02/16/2019 8:00 AM
[2019-02-16] MEDS: PHOSPHORUS 250 MG TAB PO SCH (10:18)
[2019-02-16] MEDS: ALLOPURINOL 300 MG TAB PO SCH (10:18)
[2019-02-16] MEDS: APIXABAN 5 MG TABLET PO SCH ×2 (10:18→18:37)
[2019-02-16] MEDS: FUROSEMIDE INJ 10 MG/ML 4 ML VIAL IV SCH ×2 (10:18→21:55)
[2019-02-16] MEDS: GABAPENTIN 300 MG CAP PO SCH ×4 (10:18→21:55)
[2019-02-16] MEDS: PANTOPRAZOLE 40 MG 10ML VIAL IV SCH (10:18)
[2019-02-16] MEDS: FINASTERIDE 5 MG TAB PO SCH ×2 (10:18→18:37)
[2019-02-16] MEDS: DIGOXIN 0.25 MG TAB PO SCH (10:18)
[2019-02-16] MEDS: FLUCONAZOLE 200 MG/100 ML 100 ML IV SCH (10:18)
[2019-02-16] MEDS ORDERED: FUROSEMIDE INJ 10 MG/ML 4 ML VIAL IV ONE (11:45)
[2019-02-16] MEDS ORDERED: FUROSEMIDE INJ 80 MG in SODIUM CHLORIDE 0.9% 100 ML IV ONE (12:00)
[2019-02-16] MEDS: TAMSULOSIN HCL 0.4 MG CAP PO SCH (18:37)
[2019-02-16] MEDS: VANCOMYCIN HCL 1.25 GM in SODIUM CHLORIDE 0.9% 250ML 250 ML IV SCH (18:38)
[2019-02-17] VITALS (16 sets, daily range): BP systolic 115–151; BP diastolic 67–95
[2019-02-17] MEDS: METOPROLOL TARTRATE 50 MG TAB PO SCH ×3 (00:45→12:35)
[2019-02-17] MEDS: OXYCODONE/ACETAMINOPHEN 5-325 1 EACH TABLET GT PRN ×2 (03:10→16:12)
[2019-02-17 05:15] LABS: BASOPHILS % 0.3 % (0.0-1.0); EOSINOPHILS # (AUTO) 0.1 (0.0-0.4); EOSINOPHILS % 1.4 % (0.0-6.0); HEMOGLOBIN 10.4 g/dL (14.0-18.0); LYMPHOCYTES # (AUTO) 1.1 (1.0-3.2); LYMPHOCYTES % 14.7 % (18.0-39.1); MEAN CORPUSCULAR HEMOGLOBIN 26.1 pg (28-32); MEAN CORPUSCULAR HGB CONC 28.1 g/dL (31-35); MEAN CORPUSCULAR VOLUME 92.7 fL (81-99); MONOCYTES # (AUTO) 0.5 (0.2-0.8); MONOCYTES % 6.6 % (4.4-11.3); NEUTROPHILS # (AUTO) 5.5 (2.1-6.9); NEUTROPHILS % 76.3 % (38.7-80.0); PLATELET COUNT 346 x10e3/uL (140-360); RED BLOOD COUNT 3.99 x10e6/uL (4.3-5.7); RED CELL DISTRIBUTION WIDTH 15.6 % (11.7-14.4)
[2019-02-17 05:39] LABS: ANION GAP 13.8 mmol/L (8-16); BLOOD UREA NITROGEN 30 mg/dL (7-26); BUN/CREATININE RATIO 35 (6-25); CALCIUM 9.4 mg/dL (8.4-10.2); CARBON DIOXIDE 36 mmol/L (22-29); CHLORIDE 101 mmol/L (98-107); CREATININE, SERUM 0.86 mg/dL (0.72-1.25); EST GLOMERULAR FILTRATION RATE > 60 ML/MIN (60-); GLUCOSE 117 mg/dL (74-118); POTASSIUM 3.8 mmol/L (3.5-5.1); SODIUM 147 mmol/L (136-145)
[2019-02-17] MEDS: LEVOTHYROXINE SODIUM 50 MCG TAB PO SCH (06:50)
[2019-02-17 08:09] LABS: LYMPHOCYTES % (MANUAL) 20 % (19-48); MONOCYTES % (MANUAL) 7 % (3.4-9.0); NEUTROPHILS % (MANUAL) 73 % (40-74); POIKILOCYTOSIS MODERATE; POLYCHROMASIA S
[2019-02-17 08:10] LABS: ANISOCYTOSIS SLIGHT; OVALOCYTES FEW; RBC MORPHOLOGY COMMENT ABNORMAL
[2019-02-17 08:11] LABS: PLATELET MORPHOLOGY COMMENT NORMAL
[2019-02-17 08:12] LABS: ELLIPTOCYTE, RBC SLIGHT; PLATELET ESTIMATE ADEQUATE; TEAR DROP CELLS FEW
[2019-02-17] MEDS: PANTOPRAZOLE 40 MG 10ML VIAL IV SCH (08:34)
[2019-02-17] MEDS: FUROSEMIDE INJ 10 MG/ML 4 ML VIAL IV SCH (08:34)
[2019-02-17] MEDS: FLUCONAZOLE 200 MG/100 ML 100 ML IV SCH (08:34)
[2019-02-17] MEDS: APIXABAN 5 MG TABLET PO SCH (08:35)
[2019-02-17] MEDS: PHOSPHORUS 250 MG TAB PO SCH (08:35)
[2019-02-17] MEDS: DIGOXIN 0.25 MG TAB PO SCH (08:35)
[2019-02-17] MEDS: FINASTERIDE 5 MG TAB PO SCH (08:36)
[2019-02-17] MEDS: ALLOPURINOL 300 MG TAB PO SCH (08:36)
[2019-02-17] MEDS: GABAPENTIN 300 MG CAP PO SCH ×2 (08:36→12:35)
--- NOTE | 2019-02-17 12:12 | Discharge Summary ---
ADMIT DIAGNOSES: 1. Acute hypercapnic respiratory failure secondary to acute pulmonary edema. 2. Hzxnr-gz-oirmqjw systolic/diastolic congestive heart failure. 3. Severe obstructive sleep apnea. 4. Right-sided pneumonia likely gram-negative anton. 5. Sepsis secondary to pneumonia. 6. Extreme obesity, BMI 44. 7. Chronic atrial fibrillation. 8. Warfarin toxicity. DISCHARGE DIAGNOSES: 1. Chronic respiratory failure. 2. Ekcmh-op-ocpmlid systolic/diastolic congestive heart failure. 3. Bilateral pneumonia, likely gram-negative anton. 4. Sepsis secondary to bilateral pneumonia, resolving. 5. Severe obstructive sleep apnea. 6. Extreme obesity, BMI 44. 7. Chronic atrial fibrillation. 8. Warfarin toxicity, resolved. 9. Anemia secondary to chronic disease. HOSPITAL COURSE: This is a 74-year-old white man, who was initially admitted to [facility] with diagnosis of acute hypercapnic respiratory failure secondary to acute pulmonary edema. He was found to have [id number]-svbdjvz systolic/diastolic congestive heart failure during this hospital stay. The patient's specific heart failure was confirmed with 2D echocardiogram that was performed during this hospital stay. Also, during this hospital stay, he was diagnosed with sepsis secondary to bilateral pneumonia, which was most likely thought to be secondary to gram-negative anton bacterial organisms. The patient also has underlying severe obstructive sleep apnea. The patient was intubated endotracheally in the emergency room on admission because of acute hypercapnic respiratory failure. During this hospitalization, he was successfully extubated. The family stated that they did not wish for the patient to be reintubated, but did want to continue with intravenous vasopressors or intravenous antiarrhythmics as needed. The family stated they are adamantly against tracheostomy placement. Also, on admission, the patient was found to have warfarin toxicity, thus warfarin therapy was discontinued and he was started on oral Eliquis, which he tolerated quite well. During this hospitalization, the patient was seen by his file clerk data entry, namely Dr. Jorge A Boyce as well as well as his manager fixed income, namely Dr. Catrachita Dong. The patient was also seen by Infectious Disease specialist, namely Dr. Amos. The decision was made to transfer the patient to a long-term acute care facility namely [facility], where he could receive intravenous antibiotic therapy for his pneumonia as well as aggressive respiratory care for his chronic respiratory failure. Moreover, at the long-term acute care facility, the patient received daily physician visits for his multiple medical comorbidities. CONDITION: The patient's condition on discharge is stable with an overall fair prognosis. DISCHARGE MEDICATIONS: 1. Gabapentin 600 mg p.o. q.i.d. 2. Finasteride 5 mg p.o. b.i.d. 3. Allopurinol 450 mg p.o. daily. 4. Apixaban 5 mg p.o. b.i.d. 5. Digoxin 0.25 mg p.o. daily. 6. Phosphorus 250 mg p.o. daily. 7. Furosemide 40 mg intravenous every 12 hours. 8. Fluconazole 100 mg intravenous every 24 hours. 9. Pantoprazole 40 mg intravenous daily. 10. Metoprolol tartrate 100 mg p.o. q.6 hours. 11. Levothyroxine 50 mcg p.o. daily. 12. Oxycodone/acetaminophen, 5/325 two pills every 4 hours p.r.n. pain. 13. Vancomycin one 2.5 g intravenous every 24 hours. 14. Tamsulosin 0.4 mg every night. 15. Ondansetron 4 mg intravenous every 4 hours p.r.n. nausea and vomiting. 16. Acetaminophen 650 mg p.o. q.6 hours p.r.n. fever or mild pain. 17. Meropenem 500 mg intravenous every 8 hours. FOLLOWUP INSTRUCTIONS: As previously stated, the patient will be transferred to a local long-term acute care facility namely [facility], who will be under the care of his attending, namely Dr. John Obregon. The patient was made a limited do not resuscitate code status with only administration of intravenous antiarrhythmics or intravenous pressors if cardiac arrest occurs. MD YOHAN Madrigal/BEL /[id number] cc: MD Catrachita Del Rosario MD Zaher Shebib, MD MTDD
[2019-02-17] MEDS ORDERED: MEROPENEM 500MG 500 MG in SODIUM CHLORIDE 0.9% 50ML 50 ML IV SCH (14:00)
--- NOTE | 2019-02-17 14:08 | NUR ---
[facility] CALLED WITH BED ASSIGNMENT 1350. ICU BED #2. FAXED CLINICALS TO [phone]. REPORT CALLED TO [phone] Addendum: 02/17/19 at 1438 by Aleksandra Rubi RN CHANGED BED TO ICU 11
[2019-02-17] MEDS ORDERED: MEROPENEM 500MG/ NS 50ML 50 ML ONE (14:51)
--- NOTE | 2019-02-17 14:53 | NUR ---
HOSPITAL COURSE: This is a 74-year-old white man, who was initially admitted to [facility] with diagnosis of acute hypercapnic respiratory failure secondary to acute pulmonary edema. He was found to have [id number] systolic/diastolic congestive heart failure during this hospital stay. The patient's specific heart failure was confirmed with 2D echocardiogram that was performed during this hospital stay. Also, during this hospital stay, he was diagnosed with sepsis secondary to bilateral pneumonia, which was most likely thought to be secondary to gram-negative anton bacterial organisms. The patient also has underlying severe obstructive sleep apnea. The patient was intubated endotracheally in the emergency room on admission because of acute hypercapnic respiratory failure. During this hospitalization, he was successfully extubated. The family stated that they did not wish for the patient to be reintubated, but did want to continue with intravenous vasopressors or intravenous antiarrhythmics as needed. The family stated they are adamantly against tracheostomy placement. Also, on admission, the patient was found to have warfarin toxicity, thus warfarin therapy was discontinued and he was started on oral Eliquis, which he tolerated quite well. During this hospitalization, the patient was seen by his public relations senior associate, namely Dr. Jorge A Boyce as well as well as his single pass soil stabilizer operator, namely Dr. Catrachita Dong. The patient was also seen by Infectious Disease specialist, namely Dr. Amos. The decision was made to transfer the patient to a long-term acute care facility namely [facility], where he could receive intravenous antibiotic therapy for his pneumonia as well as aggressive respiratory care for his chronic respiratory failure. Moreover, at the long-term acute care facility, the patient received daily physician visits for his multiple medical comorbidities. CONDITION: The patient's condition on discharge is stable with an overall fair prognosis. DISCHARGE MEDICATIONS: 1. Gabapentin 600 mg p.o. q.i.d. 2. Finasteride 5 mg p.o. b.i.d. 3. Allopurinol 400 mg p.o. daily. 4. Apixaban 5 mg p.o. b.i.d. 5. Digoxin 0.25 mg p.o. daily. 6. Phosphorus 250 mg p.o. daily. 7. Furosemide 40 mg intravenous every 12 hours. 8. Fluconazole 100 mg intravenous every 24 hours. 9. Pantoprazole 40 mg intravenous daily. 10. Metoprolol tartrate 100 mg p.o. q.6 hours. 11. Levothyroxine 50 mcg p.o. daily. 12. Oxycodone/acetaminophen, 5/325 two pills every 4 hours p.r.n. pain. 13. Vancomycin one 2.5 g intravenous every 24 hours. 14. Tamsulosin 0.4 mg every night. 15. Ondansetron 4 mg intravenous every 4 hours p.r.n. nausea and vomiting. 16. Acetaminophen 600 mg p.o. q.6 hours p.r.n. fever or mild pain. 17. Meropenem 500 mg intravenous every 8 hours. FOLLOWUP INSTRUCTIONS: As previously stated, the patient will be transferred to a local long-term acute care facility namely [facility], who will be under the care of his attending, namely Dr. John Obregon. The patient was made a limited do not resuscitate code status with only administration of intravenous antiarrhythmics or intravenous pressors if cardiac arrest occurs. [id number]
--- NOTE | 2019-02-17 16:16 | NUR ---
ST Note: Order for bedside swallow eval noted. pt discharged before eval could be completed.
--- NOTE | 2019-02-17 17:27 | Progress Note ---
DATE: 02/16/2019 SUBJECTIVE: Mr. Diaz remains in intensive care unit, comfortable. He seems more alert. REVIEW OF SYSTEMS: HEENT: There is no headache, visual changes. GI: There is no nausea or vomiting. Overall seems to be better. PHYSICAL EXAMINATION: GENERAL: Alert. VITAL SIGNS: Stable, afebrile. HEENT: Normocephalic. NECK: Supple. CHEST: Clear. HEART: S1, S2. No S3, S4, or murmur. ABDOMEN: Soft. Discussed with the family and his . I had a very long discussion with the family. IMPRESSION: 1. Sepsis, pneumonia, community acquired better. 2. Congestive heart failure. I think the patient is clinically better because of improvement in controlling his heart rate. 3. Atrial fibrillation. 4. Obesity. 5. Neuropathy. 6. Gout. To continue as ordered. The patient is DNR. We will follow. MD FIGUEROA Paredes/BEL /[id number]
--- NOTE | 2019-02-18 05:08 | NUR ---
SPOKE TO CIERA WITH SIZE VU. 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 CONFIRMATION NUMBER #[id number].
== END 2019-02-17 16:53 | DRG 870 ==
LOC: ER 11:06 → ERHOLD 13:20 → ICU 14:08
PROVIDERS: ADMIT Internal Medicine; ATTEND Internal Medicine
PROC: 5A1955Z Respiratory Ventilation, Greater than 96 Consecutive Hours (ICD-10-PCS; principal; 2019-02-07)
PROC: 0BH17EZ Insertion of Endotracheal Airway into Trachea, Via Natural or Artificial Opening (ICD-10-PCS; 2019-02-07)
PROC: 02HV33Z Insertion of Infusion Device into Superior Vena Cava, Percutaneous Approach (ICD-10-PCS; 2019-02-09)
PROC: B548ZZA Ultrasonography of Superior Vena Cava, Guidance (ICD-10-PCS; 2019-02-09)
DX: A41.9 Sepsis, unspecified organism (principal); J96.02 Acute respiratory failure with hypercapnia; I50.43 Acute on chronic combined systolic (congestive) and diastolic (congestive) heart failure; J15.6 Pneumonia due to other Gram-negative bacteria; J96.01 Acute respiratory failure with hypoxia; R65.21 Severe sepsis with septic shock; H33.20 Serous retinal detachment, unspecified eye; Z68.41 Body mass index [BMI] 40.0-44.9, adult; I48.92 Unspecified atrial flutter; G61.81 Chronic inflammatory demyelinating polyneuritis; T45.511A Poisoning by anticoagulants, accidental (unintentional), initial encounter; G47.33 Obstructive sleep apnea (adult) (pediatric); E66.01 Morbid (severe) obesity due to excess calories; E03.9 Hypothyroidism, unspecified; Z95.5 Presence of coronary angioplasty implant and graft; I48.0 Paroxysmal atrial fibrillation; G40.909 Epilepsy, unspecified, not intractable, without status epilepticus; Z87.820 Personal history of traumatic brain injury; Z79.84 Long term (current) use of oral hypoglycemic drugs; Z79.01 Long term (current) use of anticoagulants; Z66 Do not resuscitate; Z80.42 Family history of malignant neoplasm of prostate; Z99.3 Dependence on wheelchair; E11.42 Type 2 diabetes mellitus with diabetic polyneuropathy; M10.9 Gout, unspecified; Z74.01 Bed confinement status; R53.81 Other malaise; Y95 Nosocomial condition; R13.10 Dysphagia, unspecified; D64.9 Anemia, unspecified
CPT/HCPCS: 31500; 36415; 36556; 36600; 70450; 71045; 71250; 74018; 74176; 74470; 76604; 76700; 76937; 80048; 80053; 80162; 80202; 81001; 82140; 82533; 82550; 82553; 82805; 82948; 83605; 83735; 83880; 84100; 84436; 84443; 84479; 84484; 84550; 85025; 85610; 85730; 87040; 87070; 87086; 87205; 93005; 93306; 93970; 94002; 94003; 94660; 99284; C1751; J0330; J0692; J1160; J1450; J1644; J1650; J1940; J2060; J2250; J2405; J3370; J3430; J3475; J3480; J7030; J7040; J7050